=== PATIENT | female | born 1950 | race Caucasian/White ===

== ENCOUNTER 2018-07-01 10:47 | Inpatient (IN) | payer MEDICARE, OTHER, SELFPAY ==
[2018-05-13 08:46] VITALS: BMI 30.6
[2018-07-01] VITALS (27 sets, daily range): BP systolic 124–175; BP diastolic 46–88; PULSE 100–120; RESP 10–16; TEMP 36.1–36.6; O2SAT 90–97; BMI 32.1
--- NOTE | 2018-07-01 | DI.RAD.S_ITS ---
PROCEDURE: XR LUMBAR SPINE 2-3V INDICATIONS: L4-5 TLIF TECHNIQUE: 2 views of the lumbar spine were acquired. COMPARISON: [facility], MR, MR LUMBAR SPINE WITHOUT CONTRAST, 02/04/2018, 14:13. [facility], CR, L-SPINE 2-3 VIEWS, 11/17/2016, 11:26. FINDINGS: 2 spot fluoroscopic intraoperative images demonstrating posterior spinal instrumentation from L4-L5 interbody cage graft. There is expected intraoperative alignment. The hardware appears intact. Dictated by: Reg Ramirez M.D. on 07/01/2018 at 15:45 Approved by: Reg Ramirez M.D. on 07/01/2018 at 15:46
[2018-07-01] MEDS: LACTATED RINGERS 1,000 ML 42 ML IV (11:26)
--- NOTE | 2018-07-01 12:02 | PM.PREOP ---
Pre-operative Note Interval Note History & Physical reviewed/Exam performed by Physician: Yes Changes to H&P: No
[2018-07-01] MEDS: CEFAZOLIN 2 GM/100 ML FROZ.PIGGY IV (12:27)
--- NOTE | 2018-07-01 13:15 | SUR.OPER ---
Prone on spine table, head in foam head support, padded chest and pelvic supports, gel pad at knees, lower legs supported by pillows; nipples, genitalia and toes free of pressure, arms secured on foam padded arm boards at <90 degrees abduction. Tape over blanket at thigh secured to table. Gel pad between heels.
[2018-07-01] MEDS: BUPIVACAINE LIPOSOME 266 MG/20 ML VIAL INJ (13:26)
[2018-07-01] MEDS: BUPIVACAINE 0.25% W/ EPI VIAL 30 ML INJ (13:26)
--- NOTE | 2018-07-01 15:07 | P.OP_ITS ---
Operative Date/Time/Diagnoses Date of procedure: 07/01/18 Time of procedure: 12:01 Pre-op diagnosis: 1. L4-5 spondylolisthesis 2. L4-5 spinal stenosis Post-op diagnosis: same Procedure & Clinicians Procedure: 1. L4-5 Postero-lateral and posterior interbody fusion 2. L4-5 interbody cage placement. 3. L4-5 decompressive laminectomy with bilateral facetecomies 4. L4-5 Posterior non-segmental instrumentation 5. L3-4 hemilaminectomy 6. [place] of bone marrow from iliac crest 7. Utilization of microsurgical technique and operating microscope Same procedure as scheduled: Yes Indications: Patient has been having chronic back pain and worsening lumbar radiculopathy. Patient failed multiple conservative management with worsening pain weakness and numbness in her lower extremity. Patient has been having difficulty performing activity of daily living. After discussing risks benefits of treatment options, patient elected proceed with surgery. Surgeon: Carol Jin Roads Superintendent: Marcela Kolb Click Yes if Unassisted: No Anesthesia Type: General Operative Notes Closure Type: primary Specimen(s): none sent Prosthetic devices, grafts, tissues, transplants, or devices: Globus revolve screws, Rise cage Estimated Blood Loss (mL): 50 Blood products transfused: none Procedure in detail: Patient was seen in the preoperative area. Risks and benefits of the surgery was discussed with the patient. Informed consent was obtained from the patient and placed in the chart. Surgical site was marked. Patient was taken to the operative room. General anesthesia was administered. Prophylactic antibiotic was given to the patient less than 30 min before the incision was made. Patient was placed into a prone position on the Watson table. Patient's back was then prepped and draped in the sterile fashion. Time- out was performed at this time. Using AP and lateral C-arm imaging the interval between L3-L5 was identified and marked on patient's back. A 2 inch incision 2 in from midline was made on the left side first. The fascia was incised in line with skin incision. Globus MARS retractors was placed inside the incision and docked onto the L4 lamina. Using microsurgical technique and operating microscope, a L4 laminectomy and L4-5 facetectomy was performed using a Kerrison rongeur. More than 50% of bilateral L4-5 facets were removed during the process of decompression rendering the L4-5 level grossly unstable and requiring a fusion at the same time. The disc space at L4-5 was identified. And a total diskectomy was performed at L4-5 level. The endplates were decorticated using a rasp and shaver. The total diskectomy and decortication was performed at L4-5 level in order to to accomplish a L4-5 fusion. The local bone from the laminectomy and facetectomy was saved for local bone grafting. After the total diskectomy and decortication was completed, Shiela Bio4 bone graft material was combined with local bone that was harvested earlier. At this time, a separate skin is incision was made over the iliac crest. A Jamshidi needle was inserted into the iliac crest through a separate skin incision. 5 cc of bone marrow aspiration was obtained through the separate skin incision using a Jamshidi needle from the iliac crest. The bone marrow aspiration was combined with local bone and the Bio4 bone grafting material. The bone grafting material was placed into the L4-5 interbody space along with a expandable cage. The cage was expanded to its maximum height using the torque limiting screwdriver. At this time the MARS retractor was redirected over the L3 lamina. Using microsurgical technique and operating microscope, a L3-4 heminectomy was performed using the Kerrison rongeur. The ligamentum flavum was also resected at the side of the hemilaminectomy for further decompression of the epidural space. At this time a mirror image incision was made on the right side. The fascia was incised in line with the skin incision. Globus MARS retractor was inserted and docked onto the L4-5 posterolateral gutter. Using the power drill, posterior- lateral decortication was performed at L4-5 level until bleeding cortical bone was identified. The remaining bone grafting material was placed into the L4-5 posterior lateral gutter he order to accomplish posterolateral fusion at the L4- 5 level. Using the double C-arm technique, pedicle screws were placed into the L4 and L5 pedicles bilaterally. This was done by placing the Jamshidi needle into the pedicles, then placing the guidewires over the Jamshidi needle, and finally placing the cannulated screws over the guidewires bilaterally. After the pedicle screws were placed, 2 titanium rods was locked into the heads of the pedicle screws using locking caps and torque limiting screwdriver. After all the hardware was placed, and confirmed with AP and lateral C-arm imaging, the wound was then irrigated with sterile normal saline and packed with Ray-Gardenia gauze for 3 min to accomplish hemostasis. After the gauze was removed the deep fascia was closed with #1 Vicryl suture. The subcutaneous layer was closed with 2-0 Vicryl. The skin was closed with skin jess. Patient tolerated the procedure well. There were no complications. Complications: none Condition: stable Disposition: Acute Care Plan for aftercare: Admit to inpatient hospital
--- NOTE | 2018-07-01 15:44 | SUR.PHASEI ---
very slow to wake up but clinically stable. Did get Dilaudid late in the case.
[2018-07-01] MEDS: fentaNYL 100 MCG/2 ML INJ 50 MCG IV ×2 (16:19→16:40)
[2018-07-01] MEDS: LACTATED RINGERS 500 ML 1000 ML IV ×3 (16:47→18:24)
--- NOTE | 2018-07-01 16:53 | SUR.PHASEI ---
Dr Ramírez stopped at bedside to review and talk to the patient regarding HR. Discussed was use of beta jurgen and/or fluids. IV bolus of LR has been started.
--- NOTE | 2018-07-01 19:08 | PC.NURSE ---
Addendum entered by Radha Torrez R.N. 07/01/18 19:14: No IVF order received as a post op. Called surgical physician director content marketing for IVF clarification/order. Made aware that Dr. Ramírez order a LR fluid bolus and patients increased HR. Per Dr. Guerra, no maintenance IVF order required if patient is tolerating PO intake and voiding. No further order obtained. Encouraging fluids. Voiding. Will continue to monitor I/Os Original Note: Abby shift note: 1730 Patient admitted to room 224 s/p TLIF by Dr. Jin. Patient awake, alert, and pleasant. Up out of bed to void in bedside commode. Remain on O2 at 2L via NC, sats 94%. Dressing to lower back, CDI. 4+ strength to BLE, CMS intact. Oriented to room, environment, and plan of care. Call light within reach.
[2018-07-01] MEDS: DOCUSATE 100 MG CAPSULE PO (21:03)
[2018-07-01] MEDS: FENOFIBRATE 145 MG TABLET PO (21:03)
[2018-07-01] MEDS: PANTOPRAZOLE 20 MG TABLET PO (21:03)
[2018-07-01] MEDS: FLUTICASONE 44 MCG HFA 120 PUFF INH INH (21:03)
[2018-07-01] MEDS: SENNOSIDES 8.6 MG TABLET 17.2 MG PO (21:04)
[2018-07-01] MEDS: TRAZODONE 50 MG TABLET PO (21:04)
[2018-07-01] MEDS: PRAVASTATIN 20 MG TABLET PO (21:04)
[2018-07-01] MEDS: SPIRONOLACTONE 50 MG TABLET 100 MG PO (21:04)
[2018-07-01] MEDS: OXYCODONE IR 5 MG TABLET 10 MG PO (21:05)
[2018-07-01] MEDS: hydrOXYzine pamoate 25 MG CAPSULE PO (21:07)
[2018-07-02] MEDS: OXYCODONE IR 5 MG TABLET 10 MG PO ×5 (00:05→12:53)
[2018-07-02 00:21] VITALS: BP 128/68; PULSE 100; RESP 18; TEMP 36.4; O2SAT 97
[2018-07-02] MEDS: hydrOXYzine pamoate 25 MG CAPSULE PO ×2 (03:24→09:49)
[2018-07-02 03:37] VITALS: BP 120/66; PULSE 95; RESP 18; TEMP 36.4; O2SAT 97
--- NOTE | 2018-07-02 04:33 | PC.NURSE ---
Addendum entered by Yanci Waller R.N. 07/02/18 04:34: pain 10, pt planning to discharge today Original Note: NOC Note: pt has been up and amb in the [facility]arra, requesting prn meds very 3hrs as ordered and pain level is now at a 3/*10
[2018-07-02 05:49] LABS: Hematocrit 29.6 % (36-46); Hemoglobin 9.2 g/dL (12.0-16.0)
[2018-07-02] MEDS: PANTOPRAZOLE 20 MG TABLET PO (06:43)
[2018-07-02 08:00] VITALS: BP 128/66; PULSE 108; RESP 18; TEMP 36.6; O2SAT 95
[2018-07-02] MEDS: METFORMIN HCL 500 MG TABLET 1000 MG PO (08:50)
[2018-07-02] MEDS: CALCIUM CARB/VIT D3 500/200 TABLET 1 EACH PO (08:50)
[2018-07-02] MEDS: hydroCHLOROthiazide 25 MG TABLET PO (08:51)
[2018-07-02] MEDS: OXYBUTYNIN 5 MG TABLET PO (08:51)
[2018-07-02] MEDS: DOCUSATE 100 MG CAPSULE PO (08:51)
[2018-07-02] MEDS: PRAVASTATIN 20 MG TABLET PO (08:51)
[2018-07-02] MEDS: VENLAFAXINE 37.5 MG TABLET PO (08:52)
[2018-07-02] MEDS: SPIRONOLACTONE 50 MG TABLET 100 MG PO (08:52)
--- NOTE | 2018-07-02 09:04 | PM.DS.1 ---
History of Present Illness Date Patient Seen: 07/02/18 Time Patient Seen: 09:04 Chief complaint: [id number] Narrative: Hospital day 2, postop day 1 following L3-4 hemilaminectomy, L4-5 TLIF, posterior instrumentation by Dr. Jin. Patient states she did get some rest off and on. She has been ambulating around the room with walker. No PT yet. Pain controlled with oxycodone 10 mg and Vistaril 25 mg. Patient feels that she is able to go home today. She does have her and friend take care of her. Discharge Providers Date of admission: 07/01/18 10:47 Primary care physician: Sun Cox PA-C Consults: 05/13/18 09:37 Consult to Pastoral Services Routine Comment: TLIF 05/29 Consult to Respiratory Therapy Evaluate & Treat Comment: Physician Instructions: Evaluate and treat 07/01/18 17:39 Consult to Occupational Therapy Evaluate & Treat Comment: Physician Instructions: Evaluate and treat Consult to Physical Therapy Evaluate & Treat Comment: Physician Instructions: Evaluate and Treat Discharge provider: Aleksey Sellers PA-C Discharge Date: 07/02/18 Summary Discharge Diagnosis: Status post L3-4 hemilaminectomy, L4-5 TLIF with posterior instrumentation Hospital Course: Patient brought to hospital on 07/01/2018 for above-noted surgery. She remained stable postoperatively. Ambulating well postoperatively. Patient ready for discharge home on postop day 1. Status at Discharge Cognitive/behavioral status at discharge: Alert, oriented no acute distress. Functional status at discharge: uses cane/walker Overall status at discharge: patient is progressing back to baseline Time Spent with Patient Less than 30 minutes Exam Vital Signs (past 8 hours): - 07/02/18 03:37 07/02/18 08:00 Temperature 97.6 F 98 F Pulse Rate 95 H 108 H Respiratory Rate 18 18 Blood Pressure 120/66 128/66 Pulse Oximetry 97 95 Oxygen Delivery Method Nasal Cannula Oxygen Flow Rate 0 Narrative Exam Narrative: Back. Dressing is dry without drainage or inflammation. Legs no calf pain or swelling. Pulses symmetrical. Good sensation to touch the lower legs. Good strength on foot dorsiflexion plantar flexion. Objective Labs Result Diagrams: 07/02/18 05:24 Labs: Laboratory Results - last 24 hr 07/02/18 05:24 Hgb 9.2 L Hct 29.6 L Discharge Plan Discharge Plan Patient Disposition: Home Discharge comment: Discharged home today after cleared by PT. Given prescriptions for oxycodone and Vistaril. Patient to avoid excessive bending or twisting of lumbar spine. No lifting or carrying more than 5-10 lb. Discharge Med Rec/Prescriptions Prescriptions: New docusate sodium 100 mg Capsule 100 mg PO BID Qty: 30 RF: 0 oxycodone 5 mg Tablet 10 mg PO Q3HR PRN (Reason: Pain, Moderate (4-6)) Qty: 40 RF: 0 hydroxyzine pamoate 25 mg Capsule 25 mg PO Q6HR PRN (Reason: Nausea) Qty: 30 RF: 0 Continued calcium carbonate-vitamin D3 [Calcium 600 with Vitamin D3] 600 MG/200 IU capsule 1 units PO QDAY Qty: 0 RF: 0 metformin 1,000 MG tablet 1,000 mg PO BIDCC Qty: 0 RF: 0 tramadol 50 mg Tablet 1 - 2 tab PO BEDTIME Qty: 0 RF: 0 trazodone 50 mg Tablet 50 mg PO BEDTIME RF: 0 cetirizine [Zyrtec] 10 mg Tablet 10 mg PO DAILY RF: 0 spironolactone 100 mg Tablet 100 mg PO BID RF: 0 venlafaxine 37.5 mg Tablet 37.5 mg PO DAILY RF: 0 fluticasone 44 mcg/actuation Hfa Aerosol Inhaler 2 inh INHALATION QD-BID RF: 0 omeprazole 20 mg Capsule,Delayed Release(Dr/Ec) 20 mg PO BID RF: 0 pravastatin 20 mg Tablet 20 mg PO BID RF: 0 hydrochlorothiazide 25 mg Tablet 25 mg PO DAILY RF: 0 oxybutynin chloride 5 mg Tablet 5 mg PO QAM RF: 0 fenofibrate nanocrystallized 145 mg Tablet 145 mg PO BEDTIME RF: 0 Follow up/Referrals: Sun Cox PA-C [Primary Care Provider] - Provider Discharge Instructions Diet: Diet as Tolerated Activity: Ambulate as tolerated with walker. No sitting more than 1 hr to time. No lifting or carrying more than 5-10 lb. Avoid excessive bending or twisting of lumbar spine. Cold/Heat Therapy: Cold pack to lumbar incision area as needed. Skin/Wound/Dressing Care Report to your healthcare provider any signs of infection, such as:: chills, fever, night sweats, increased pain, unusual drainage and unusual redness Dressing: CovRsite dressing to the lumbar incision. Keep dressing clean and dry. May shower without direct spray on the dressing. Visit Report/Discharge Packet Instructions: DI for Transforaminal Lumbar Interbody Fusion Discharge Data Primary Care Provider: Sun Cox I Attending Provider: Carol Jin Admit Date/Time: 07/01/18 10:47
--- NOTE | 2018-07-02 09:08 | P.DS_ITS ---
History of Present Illness Date Patient Seen: 07/02/18 Time Patient Seen: 09:04 Chief complaint: [id number] [phone] [phone] Narrative: Hospital day 2, postop day 1 following L3-4 hemilaminectomy, L4-5 TLIF, posterior instrumentation by Dr. Jin. Patient states she did get some rest off and on. She has been ambulating around the room with walker. No PT yet. Pain controlled with oxycodone 10 mg and Vistaril 25 mg. Patient feels that she is able to go home today. She does have her and friend take care of her. Discharge Providers Date of admission: 07/01/18 10:47 Primary care physician: Sun Cox PA-C Consults: 05/13/18 09:37 Consult to Pastoral Services Routine Comment: TLIF 05/29 Consult to Respiratory Therapy Evaluate & Treat Comment: Physician Instructions: Evaluate and treat 07/01/18 17:39 Consult to Occupational Therapy Evaluate & Treat Comment: Physician Instructions: Evaluate and treat Consult to Physical Therapy Evaluate & Treat Comment: Physician Instructions: Evaluate and Treat Discharge provider: Aleksey Sellers PA-C Discharge Date: 07/02/18 Summary Discharge Diagnosis: Status post L3-4 hemilaminectomy, L4-5 TLIF with posterior instrumentation Hospital Course: Patient brought to hospital on 07/01/2018 for above-noted surgery. She remained stable postoperatively. Ambulating well postoperatively. Patient ready for discharge home on postop day 1. Status at Discharge Cognitive/behavioral status at discharge: Alert, oriented no acute distress. Functional status at discharge: uses cane/walker Overall status at discharge: patient is progressing back to baseline Time Spent with Patient Less than 30 minutes Exam Vital Signs (past 8 hours): - 07/02/18 03:37 07/02/18 08:00 Temperature 97.6 F 98 F Pulse Rate 95 H 108 H Respiratory Rate 18 18 Blood Pressure 120/66 128/66 Pulse Oximetry 97 95 Oxygen Delivery Method Nasal Cannula Oxygen Flow Rate 0 Narrative Exam Narrative: Back. Dressing is dry without drainage or inflammation. Legs no calf pain or swelling. Pulses symmetrical. Good sensation to touch the lower legs. Good strength on foot dorsiflexion plantar flexion. Objective Labs Result Diagrams: 07/02/18 05:24 Labs: Laboratory Results - last 24 hr 07/02/18 05:24 Hgb 9.2 L Hct 29.6 L Discharge Plan Discharge Plan Patient Disposition: Home Discharge comment: Discharged home today after cleared by PT. Given prescri ptions for oxycodone and Vistaril. Patient to avoid excessive bending or twisting of lumbar spine. No lifting or carrying more than 5-10 lb. Discharge Med Rec/Prescriptions Prescriptions: New docusate sodium 100 mg Capsule 100 mg PO BID Qty: 30 RF: 0 oxycodone 5 mg Tablet 10 mg PO Q3HR PRN (Reason: Pain, Moderate (4-6)) Qty: 40 RF: 0 hydroxyzine pamoate 25 mg Capsule 25 mg PO Q6HR PRN (Reason: Nausea) Qty: 30 RF: 0 Continued calcium carbonate-vitamin D3 [Calcium 600 with Vitamin D3] 600 MG/200 IU cap brittany 1 units PO QDAY Qty: 0 RF: 0 metformin 1,000 MG tablet 1,000 mg PO BIDCC Qty: 0 RF: 0 tramadol 50 mg Tablet 1 - 2 tab PO BEDTIME Qty: 0 RF: 0 trazodone 50 mg Tablet 50 mg PO BEDTIME RF: 0 cetirizine [Zyrtec] 10 mg Tablet 10 mg PO DAILY RF: 0 spironolactone 100 mg Tablet 100 mg PO BID RF: 0 venlafaxine 37.5 mg Tablet 37.5 mg PO DAILY RF: 0 fluticasone 44 mcg/actuation Hfa Aerosol Inhaler 2 inh INHALATION QD-BID RF: 0 omeprazole 20 mg Capsule,Delayed Release(Dr/Ec) 20 mg PO BID RF: 0 pravastatin 20 mg Tablet 20 mg PO BID RF: 0 hydrochlorothiazide 25 mg Tablet 25 mg PO DAILY RF: 0 oxybutynin chloride 5 mg Tablet 5 mg PO QAM RF: 0 fenofibrate nanocrystallized 145 mg Tablet 145 mg PO BEDTIME RF: 0 Follow up/Referrals: Sun Cox PA-C [Primary Care Provider] - Provider Discharge Instructions Diet: Diet as Tolerated Activity: Ambulate as tolerated with walker. No sitting more than 1 hr to time. No lifting or carrying more than 5-10 lb. Avoid excessive bending or twisting of lumbar spine. Cold/Heat Therapy: Cold pack to lumbar incision area as needed. Skin/Wound/Dressing Care Report to your healthcare provider any signs of infection, such as:: chills, fever, night sweats, increased pain, unusual drainage and unusual redness Dressing: CovRsite dressing to the lumbar incision. Keep dressing clean and dry. May shower without direct spray on the dressing. Visit Report/Discharge Packet Instructions: DI for Transforaminal Lumbar Interbody Fusion Discharge Data Primary Care Provider: Sun Cox I Attending Provider: Carol Jin Admit Date/Time: 07/01/18 10:47
--- NOTE | 2018-07-02 09:42 | PC.NURSE ---
Addendum entered by Gayatri Richardson R.N. 07/02/18 13:57: Pt left unit at 1357 in no distress with all belongings. Pt left via wheelchair with 2 RESIDENT CARE SPEC's. Pt's daughter waiting at ED entrance to drive pt home. Original Note: Addendum entered by Gayatri Richardson R.N. 07/02/18 13:16: Lower back dressing changed to one coversite dressing. Pt tolerated well. Old dressing removed, jess intact to both incisions, no active draining. Area cleansed with NS by candy bar attendant with this RN's supervision. And coversite placed. candy bar attendant reviewed Discharge summary ,prescription, F/U appointment with this Rn's supervision. Pt had no voiced concerns. Awaiting pt's ride for discharge. Original Note: Addendum entered by Gayatri Richardson R.N. 07/02/18 11:41: Pt's pain controlled with prn Oxycodone and vistaril. Rates 1-4/10 pain to lower back and intermittent buring to left lower back with ambulation. Ambulating in halls with SBA using walker. PT okay to go home. Pt's daughter will product picker pt around 1400. Original Note: Day Shift- Spoke with DANNI Eaton at 0940, made aware of pt's tachycardia. HR mid 90's to low 100's. Monitor at home and call PCP if any further symptoms. Pt does have mild anxiety this AM. Plan for discharge around 1400.
--- NOTE | 2018-07-02 10:01 | PT.IIE ---
Current Diagnoses Spondylolisthesis, lumbar region (07/01/18) Other spondylosis with radiculopathy, lumbar region (07/01/18) Spinal stenosis, lumbar region without neurogenic claudication (07/01/18) Surgery Performed Operation Date: 07/01/18 12:45 Actual Procedures p L3-4 Right hemilaminectomy, L4-5 TLIF w/Posterior Instru. - Carol Jin MD Surgical History (Last Updated 05/13/18 @ 09:01 by Siobhan Solitario RN) History of bilateral tubal ligation (Acute) History of decompression of both ulnar nerves (Acute) Hx of appendectomy (Acute) Hx of arthroscopy of right knee (Acute) Hx of bladder repair surgery (Acute) Hx of laparoscopy (Acute) Hx of microdiscectomy (Acute) Hx of microdiscectomy (Acute 11/17/16) Hx of rhinoplasty (Acute) Hx of toe surgery (Acute) Hx of tonsillectomy (Acute) S/P cervical spinal fusion (Acute 06/26/16) S/P tendon repair (Acute) Medical History (Last Updated 06/05/18 @ 12:28 by Siobhan Solitario RN) Anxiety about health (Acute) Asthma (Acute) COPD (chronic obstructive pulmonary disease) (Acute) Diabetes (Acute) GERD (gastroesophageal reflux disease) (Acute) Ganglion cyst of dorsum of right wrist (Acute) H/O: hysterectomy (Acute) HTN (hypertension) (Acute) Hyperlipidemia (Acute) Hypothyroid (Acute) Keratosis (Acute) Numbness and tingling (Acute) Panic attacks (Acute) Pulmonary nodules (Acute) Sleep apnea (Acute) Vertigo (Acute) Physical Therapy Inpatient Evaluation/Re-Eval M1 PT/OT-IP Prior Functional Status Start: 07/02/18 08:40 Freq: NEEDED Status: Active Protocol: Document 07/02/18 09:38 EA (Rec: 07/02/18 09:48 EA [id number]) Medical Review Prior Functional Status Medical History Reviewed Yes Diet/Fluid Consistency Regular Communication A&O x 3 Mobility and Gait Ambulates > 2 blocks with straight cane to right hand Activities of Daily Living and IADL's Independent in ADL's Prior Functional Level (Other details) Fall 2 x more than 9 months ago. Social History Household Members spouse Living Arrangements House Number of Stairs To Enter/Railing? 2 steps to get in with rails to right side Home Equipment Front Wheel Walker Straight Cane Bedside Commode Grab Bars Near Toilet Employment Status Retired M2 PT-IP Current Condition Start: 07/02/18 08:40 Freq: NEEDED Status: Active Protocol: Document 07/02/18 09:38 EA (Rec: 07/02/18 09:48 EA [id number]) Physical Therapy Current Condition Current Condition Evaluation Date 07/02/18 Treatment Diagnosis L3-L4 LAMI, L4-L5 TLIF Onset Date 07/02/2018 Precautions Lumbar Precautions Log Roll No Twisting Limit Bending Lifting Restriction of 10 lbs Weight Bearing Status Weight Bearing Status Weight Bear as Tolerated M3 PT-IP Subjective Start: 07/02/18 08:40 Freq: NEEDED Status: Active Protocol: Document 07/02/18 09:38 EA (Rec: 07/02/18 09:48 EA [id number]) Subjective Physical Therapy Visit Type Type Initial Evaluation Visit Start Time 09:00 Visit Stop Time 09:45 Total Visit Minutes 45 Physical Therapy Visit Comments Patient Comments Patient would like to ambulate and try stairs before discharge today. Patient Goals Be able to ambulate and navigate stairs with FWW and STC prior to discharge. Therapy Pain Assessment Pain When Pain Assessed At Rest Pain Present Pain Present Pain Reported Location Back Intensity 2 Scale Used Numeric (1 - 10) Description Acute Burning M4 PT-IP Mobility and Gait Start: 07/02/18 08:40 Freq: NEEDED Status: Active Protocol: Document 07/02/18 09:38 EA (Rec: 07/02/18 09:48 EA [id number]) PT-Bed Mobility Assessment Rolling Type of Rolling Log Rolling Roll to Left Level of Assist Standby Assistance Supine to Sit Supine to Sit Standby Assistance Sit to Supine Sit to Supine Standby Assistance Scooting Scooting to Edge of Bed Standby Assistance PT-Transfer Assessment Sit to and From Stand Sit to and from Stand Standby Assistance Equipment Transfer Assistive Device Gait Belt Front Wheeled Walker Transfers Transfer Technique stepping transfers Transfer Ability Level of Assist Standby Assistance Comments Mobility Comments Patient would like get in/out of the bed on right side of the bed due to vertigo issues. Gait Assessment Gait Gait Assistance Required: Standby Assistance Able to Maintain Weight Bearing Status Yes During Gait Assistive Devices Assistive Device Front Wheeled Walker Gait Deviations General Gait Pattern Within Normal Limits Factors Limiting Gait Function Factors Limiting Gait Function Decreased Activity Tolerance Decreased Strength Pain Stair Climbing Assessment Evaluation Level of Assist On Stairs Standby Assistance Devices Stair Climbing Assistive Devices Straight Cane Technique/Endurance Stair Climbing Direction Ascend and Descend Stair Climbing Technique Step Over Step Step to Step Number of Steps Climbed 3 Query Text: Stair Climbing Set # Repetitions (reps) 1 Comments Stair Climbing Comments Step to step to ascend and step through to descend. Would like to perform climbing up with left to ascent on sideways as she got used to it and as per her doctor advise. PT-Balance Assessment Sitting Balance and Reactions Static Sitting Balance Ability Good Dynamic Sitting Balance Ability Good Standing Balance and Reactions Static Standing Balance Ability Good Dynamic Standing Balance Ability Fair M5 PT-IP Objective Assessments Start: 07/02/18 08:40 Freq: NEEDED Status: Active Protocol: Document 07/02/18 09:38 EA (Rec: 07/02/18 09:48 EA [id number]) Orientation Orientation/Cognition Level of Alertness Alert Orientation Name Age Language Function Ability No Deficits Noted Safety Awareness Understands Safety Issues Memory Description No Deficits Noted Gross Range of Motion Upper Extremity ROM Assessment Within Functional Limits Lower Extremity ROM Assessment Within Functional Limits Strength Upper Extremity Strength Assessment Within Functional Limits Lower Extremity Strength Assessment Within Functional Limits Ankle L ankle DF 4-/5 due to anterior bone spurs pain per patient Coordination Assessment Gross Coordination Gross Coordination WNL Assessment Finger to Nose Test Normal Performance Foot Tapping Test Normal Performance Sensation Assessment Sensation Gross Sensation WNL Light Touch Intact Proprioception (Position) Intact M6 PT-IP Treatment Start: 07/02/18 08:40 Freq: NEEDED Status: Active Protocol: Document 07/02/18 09:38 EA (Rec: 07/02/18 09:48 EA [id number]) Physical Therapy Treatment Education Education Provided Precautions Weight Bearing Status Post-Op Packet Safety M7 PT-IP Assessment and Plan Start: 07/02/18 08:40 Freq: NEEDED Status: Active Protocol: Document 07/02/18 09:38 EA (Rec: 07/02/18 09:48 EA [id number]) PT Summary Assessment and Plan Potential Rehabilitation Potential Excellent Status of Condition at Evaluation Stable Summary Impairments Pain ROM Strength Balance Bed Mobility Transfers Gait Activity Tolerance Progress Towards Goals Progressing Toward Goals Assessment Summary Patient exhibits near to SBA in all functional transfers and mobility including stairs navigation. Patient highly understands safe mobility and post surgery pre-cautions. She did not show any signs of instability or fatigue during transfers, amb, and stairs. Patient is safe to discharge to PT at this time. Patient is educated about mobility and lifting pre-cautions. Goals Bed Mobility Goal Standby Assistance Transfer Goal Standby Assistance Gait Goal Standby Assistance Frequency of Treatment Frequency Of Treatment Discharge Recommendations To Nursing Amount of Assist Needed Standby Assistance Discharge Recommendations PT Discharge Recommendations Home with Assistance
--- NOTE | 2018-07-02 14:23 | OT.IP.EVAL ---
Current Diagnoses Spondylolisthesis, lumbar region (07/01/18) Other spondylosis with radiculopathy, lumbar region (07/01/18) Spinal stenosis, lumbar region without neurogenic claudication (07/01/18) Surgery Performed Operation Date: 07/01/18 12:45 Actual Procedures p L3-4 Right hemilaminectomy, L4-5 TLIF w/Posterior Instru. - Carol Jin MD Past Medical History (Last Updated 06/05/18 @ 12:28 by Siobhan Solitario RN) Anxiety about health (Acute) Asthma (Acute) COPD (chronic obstructive pulmonary disease) (Acute) Diabetes (Acute) GERD (gastroesophageal reflux disease) (Acute) Ganglion cyst of dorsum of right wrist (Acute) H/O: hysterectomy (Acute) HTN (hypertension) (Acute) Hyperlipidemia (Acute) Hypothyroid (Acute) Keratosis (Acute) Numbness and tingling (Acute) Panic attacks (Acute) Pulmonary nodules (Acute) Sleep apnea (Acute) Vertigo (Acute) Surgical History (Last Updated 05/13/18 @ 09:01 by Siobhan Solitario RN) History of bilateral tubal ligation (Acute) History of decompression of both ulnar nerves (Acute) Hx of appendectomy (Acute) Hx of arthroscopy of right knee (Acute) Hx of bladder repair surgery (Acute) Hx of laparoscopy (Acute) Hx of microdiscectomy (Acute) Hx of microdiscectomy (Acute 11/17/16) Hx of rhinoplasty (Acute) Hx of toe surgery (Acute) Hx of tonsillectomy (Acute) S/P cervical spinal fusion (Acute 06/26/16) S/P tendon repair (Acute) Occupational Therapy Inpatient Evaluation/Re-Eval M1 PT/OT-IP Prior Functional Status Start: 07/02/18 14:12 Freq: NEEDED Status: Active Protocol: Document 07/02/18 11:50 [facility] (Rec: 07/02/18 14:23 [facility] [id number]) Medical Review Prior Functional Status Medical History Reviewed Yes Diet/Fluid Consistency Regular Communication A&O x 3 Mobility and Gait Ambulates > 2 blocks with straight cane to right hand Activities of Daily Living and IADL's Independent in ADL's Prior Functional Level (Other details) Fall 2 x more than 9 months ago. Social History Household Members spouse Living Arrangements House Number of Stairs To Enter/Railing? 2 steps to get in with rails to right side Home Equipment Front Wheel Walker Straight Cane Bedside Commode Grab Bars Near Toilet Employment Status Retired M2 OT-IP Current Condition Start: 07/02/18 14:12 Freq: Status: Active Protocol: Document 07/02/18 11:50 [facility] (Rec: 07/02/18 14:23 [facility] [id number]) Occupational Therapy Current Condition Current Condition Evaluation Date 07/02/18 Treatment Diagnosis Spinal Stenosis Diagnosis Onset Date 07/01/18 M3 OT- IP Subjective and Pain Start: 07/02/18 14:12 Freq: Status: Active Protocol: Document 07/02/18 11:50 [facility] (Rec: 07/02/18 14:23 [facility] [id number]) OT- Subjective Occupational Therapy Visit Type Type Initial Evaluation Visit Start Time 11:50 Visit Stop Time 12:10 Total Visit Minutes 20 Occupational Therapy Visit Comments Patient Comments Pt ready to go home and willing to do OT eval. OT Pain Assessment Pain When Pain Assessed At Rest Pain Present Pain Present Denied Pain M4 OT- IP ADL's Start: 07/02/18 14:12 Freq: Status: Active Protocol: Document 07/02/18 11:50 [facility] (Rec: 07/02/18 14:23 [facility] [id number]) OT ADL-Dressing General Eval Lower Body Dressing Ability Maximum Assistance Comments OT Dressing Comments Educated pt on LB AED of sock aid, pt already has boat rigger at home to use. Pt able to freddy/ doff socks with increased time after education. OT ADL-Toileting Comments OT Toileting Comments Pt states since she uses the bathroom a lot at night that she will pickling tank operator a BSC. In addition suggested pt may want to wear pads at night. Pt also given information for toilet aid. M6 OT- IP Functional Cognition Start: 07/02/18 14:12 Freq: Status: Active Protocol: Document 07/02/18 11:50 [facility] (Rec: 07/02/18 14:23 [facility] [id number]) Cognitive Factors Limiting Selfcare Function Cognitive Ability Level of Alertness Alert Patient Orientation Name Place Situation Attention Span Ability Capable of Focused Attention Capable of Sustained Attention Ability to Follow Commands Able to Follow Multi-Step Commands Memory Description No Deficits Noted Safety Awareness No Deficits Noted Problem Solving Ability No deficits Noted Cognitive Comments Cognitive Assessment Comments Intact and able to recall all back precautions. M9 OT- IP Assessment and Plan Start: 07/02/18 14:12 Freq: Status: Active Protocol: Document 07/02/18 11:50 [facility] (Rec: 07/02/18 14:23 [facility] [id number]) OT Summary Assessment and Plan Potential Rehabilitation Potential Good Analytic Complexity at Evaluation Low Summary OT Impairments Functional Mobility Dressing Toileting Bathing Progress Towards Goals Progressing Toward Goals Assessment Summary Pt low complexity and doing well at this time for mobility with FWW and PT has already cleared pt for going home. Pt' s family to be able to assist pt for OT needs at needs. Therefore pt going home with assist from family. Goals Patient/Caregiver Education Goal Demonstrate Post-Op Precautions Caregiver Independent Assisting Patient Days to Meet Goals 1 Frequency of Treatment Frequency Of Treatment Once a Day Treatment Plan OT Treatment Plan ADL Training Discharge Recommendations OT Discharge Recommendations Home with Assistance Home Equipment Needs shower chair, BSC, sock aid, toilet aid
--- NOTE | 2018-07-02 15:01 | CM.DANOTE ---
DCP/Assessment: Reviewed chart. Patient is a 68yr old female admitted [facility] for spine surgery performed on 07-01-[address] Jin. PCP listed is: Sun Cox. Primary payor is 1)Medicare 2)[email or web address]. Met with patient explained CM/SW role. Patient reports that she plans to go home today. Patient has needed DME and feels like she will be fine to d/c home today. Therapy evaluating this AM. If cleared, plan is for patient do d/c home. Patient denies any d/c planning needs. P: Home when medically stable. CARIN Denny Discharge Planning/Care Management CM Discharge Assessment Start: 07/02/18 14:59 Freq: Status: Discharge Protocol: Document 07/02/18 14:59 [facility] (Rec: 07/02/18 15:01 KJS [id number]) Discharge Planning Assessment Assigned Master Police Detective CARIN Denny Contact Information Ahmet Burr # Advance Directives? No: Declines further information History Provided By Patient Has Patient been admitted in last 30 No days? Prior Living Arrangements House Household Members spouse Type of transporation used prior to Drives own vehicle admit Independent with ADL's Yes Is patient alert and oriented? Yes Caregiver for Another No DME Already Rented / Owned FWW / Walker Barriers to Discharge No Discharge Plan Home Referrals Initiated None needed Whiteboard Updated in Patient Room with Yes name and ext. # of Master Police Detective Review Status In Process Please Provide Date Initial DC 07/02/18 Assessment Was Performed Next Review Type Continued Stay Review Pre-Anesthesia Assessment Start: 05/13/18 08:46 Freq: Status: Complete Protocol: Document 05/13/18 08:46 [facility] (Rec: 05/13/18 09:36 [facility] [id number]) Pre-Anesthesia Assessment Patient Information Reviewed Via Phone Assessment Assessment Completed With Patient Diagnostic Results BMP/CMP CBC EKG Other Comment Outside labs/EKG to med records to be scanned to chart Primary Care Provider Wilfredo Mccoy Medical Clearance Received Yes Seen Specialist in Last 12 Months Yes Specialist Seen Orthopedist Medical Aides Teacher School Custodian Sleep specialist Comment Sleep visit/pre-op 06/03/18 scanned to record Primary Language Chinese Crane Service Technician Required No Height 163.83 cm Weight 82.1 kg Body Mass Index (BMI) 30.6 Hearing Ability Normal Visual Assist Glasses Dentition Type Teeth, Natural Present Teeth, Missing Partial- Lower Barriers to Learning None Hx Anesthesia Reactions Yes: Nausea/vomiting post-op Hx Family Anesthesia Reaction No Hx Malignant Hyperthermia No Hx Blood Transfusions Yes: 45 years r/t vaginal delivery Hx Blood Transfusion Reaction No Anesthesia Review Requested No Functional Manager No alcohol intake current alcohol intake frequency holidays/special occasions only Smoking Status Former smoker Smoking packs per day 2 how long ago did patient quit smoking Quit approx 30 years, smoked 15 years on and off Smoking pack-years 30 Substance Use Type does not use Pain Present Pain Reported Musculoskeletal Symptoms Abnormal Gait Back Pain Difficulty Walking Joint Pain Joint Stiffness Muscle Cramps Numbness Tingling History of Falling (Recent or History of Yes ) Patient is completely paralyzed or No completely immobile Prosthesis or Orthotic Device Cane Mental Status Oriented to own ability Is patient on oxygen? No Does patient have ROD/SOB No Hx Sleep Apnea Yes: Borderline per pt, no equipment CPAP/BIPAP use not prescribed Currently Taking a Beta Josse No Can You Climb a Flight of Stairs Without Yes: one step at time SOB Hx Chest Pain No Hx SOB No Hx Syncope or Dizziness Yes: r/t Vertigo Anti-Coagulant Therapy No Has a Leadership Development Consultant No Cardiac Testing No Hx Pacemaker/ICD No Pacemaker Rep Required? No Diet Type At Home Regular dysphagia No Bladder Pattern Urgency Urinary Catheter Present No Hx Urinary Self Catheterization No Diabetes Yes: Pt does not check blood sugars, I feel fine HgbA1C 7.8 Date 04/24/18 Comment Encouraged pt to talk w/PCP on checking blood sugars at home Patient No Lactating No Hx Drug Resistant Organism No Presence of External or Internal Medical No Devices Have you traveled outside the [facility] in the last 30 days? Marital Status Lives With spouse Prior Living Arrangements House Number of Floors (Floors) One Floor Number of Stairs To Enter/Railing? 2 stairs, railing present Support System Child/Children Spouse Does the Patient Have Assistance After Yes Surgery Patient Discharge Plan Description Return Home Comment Pt advised 2 night length of stay per surgeon's office Feels Safe in Current Environment Yes Been Physically Hurt or Threatened By a No Person in Current Environment Do you have thoughts of harming yourself None or others? Are you currently considering suicide? No Do you have a plan to hurt yourself or No Plan others? Do You Have Any Spiritual Beliefs That No May Affect Your HC Choices? Do You Have Any Cultural Practices That No May Affect Your HC Choices? Spiritual Referral In-House Nickel Plater Comment Tenriism Who Can We Speak to About Patient's Care Family only Identifying Code for Release of Patient Declines to issue Information Health Care Proxy/Next of Kin Ahmet () or Zoila (daughter) Health Care Proxy Phone Number Ahmet: [phone], Zoila: [phone] Emergency Contact Name Ahmet () or Zoila (daughter) Emergency Contact Phone Number Ahmet: [phone], Zoila: [phone] Advance Directives? No: Declines further information Power of Dry End Operator No PAC Instructions Durable medical equipment Medications to take/avoid Nasal antibiotic No ETOH/petroleum product on skin DOS NPO Pre-surgical wash Sturdy shoes/comfortable clothes Do not bring valuables and remove jewelry
== END 2018-07-02 13:58 | disposition home or self-care (01) | DRG 455 ==
PROVIDERS: Admitting Provider Orthopaedic Surgery Orthopaedic Surgery of the Spine; Family Provider Physician Assistant; PCP Physician Assistant; Visit Provider Orthopaedic Surgery Orthopaedic Surgery of the Spine
PROC: 0SG00AJ Fusion of Lumbar Vertebral Joint with Interbody Fusion Device, Posterior Approach, Anterior Column, Open Approach (ICD-10-PCS; principal; 2018-07-01 12:45)
DX: M48.061 Spinal stenosis, lumbar region without neurogenic claudication (principal); M43.16 Spondylolisthesis, lumbar region; I10 Essential (primary) hypertension; E11.9 Type 2 diabetes mellitus without complications; K21.9 Gastro-esophageal reflux disease without esophagitis; E78.5 Hyperlipidemia, unspecified; F41.9 Anxiety disorder, unspecified; Z87.891 Personal history of nicotine dependence; Z79.84 Long term (current) use of oral hypoglycemic drugs
CPT/HCPCS: 36415; 72100; 76000; 85014; 85018; 97161; 97165; 97530; 97535; C1776; C9290; J0330; J0690; J1100; J1170; J2250; J2405; J2704; J3010

== ENCOUNTER → 2020-07-10 11:08 | Outpatient (CLI) | payer MEDICARE, OTHER, SELFPAY ==
[2018-07-01 18:33] VITALS: BMI 32.1
[2020-07-10 14:37] LABS: COVID19 -Nasal RAPID Negative (Negative)
== END ==
PROVIDERS: Family Provider Physician Assistant; PCP Physician Assistant; Visit Provider Nurse Practitioner
DX: Z20.822 Contact with and (suspected) exposure to COVID-19 (principal)
CPT/HCPCS: 87635; C9803

== ENCOUNTER 2020-07-13 14:12 | Inpatient (IN) | payer MEDICARE, OTHER, SELFPAY ==
[2018-07-01 18:33] VITALS: BMI 32.1
[2020-06-29 11:34] VITALS: BMI 34.1
[2020-07-12] VITALS (17 sets, daily range): BP systolic 81–168; BP diastolic 55–84; PULSE 92–105; RESP 10–93; TEMP 35.8–37.4; O2SAT 16–97; BMI 34.1
--- NOTE | 2020-07-12 06:00 | DI.RAD.S_ITS ---
PROCEDURE: XR KNEE RT 1TO2V INDICATIONS: post-op films TECHNIQUE: 2 view(s) of the knee acquired. COMPARISON: None. FINDINGS: Bones: Patient is status post knee joint arthroplasty. Hardware components are in expected positions. Visualized bony structures are intact. Soft tissues: Overlying postoperative changes are noted. IMPRESSION: Postop changes from right total knee arthroplasty with anatomic right knee alignment. Dictated by: Jaylen Siu M.D. on 07/12/2020 at 11:04 Approved by: Jaylen Siu M.D. on 07/12/2020 at 11:05
[2020-07-12] MEDS: PREGABALIN 75 MG CAPSULE PO (06:44)
[2020-07-12] MEDS: ACETAMINOPHEN 325 MG TABLET 975 MG PO (06:44)
[2020-07-12] MEDS: LACTATED RINGERS 1,000 ML 42 ML IV ×2 (07:05→09:25)
--- NOTE | 2020-07-12 07:05 | PM.PREOP ---
Pre-operative Note COVID-19 COVID-19 status: Negative Result date/Date tested (Pos, Neg/Pending): 07/10/20 Interval Note History & Physical reviewed/Exam performed by Physician: Yes Changes to H&P: No
[2020-07-12] MEDS: CEFAZOLIN 2 GM/100 ML FROZ.PIGGY IV (08:17)
[2020-07-12] MEDS: TRANEXAMIC ACID 1,000 MG VIAL 1000 MG INJ ×2 (08:30→09:23)
[2020-07-12] MEDS: FAMOTIDINE 20 MG/50 ML PIGGYBACK 200 MG IV (08:31)
--- NOTE | 2020-07-12 08:38 | SUR.OPER ---
Supine on padded OR bed. Pillow under head, arms secured on padded armboards <90 degree abduction. Safety belt across torso. Non-operative leg secured with tape over blanket over lower leg. Operative leg secured in DeMayo/Kb positioner. Foam padded brace at thigh of operative leg.
[2020-07-12] MEDS: BUPIVACAINE 0.5% W/ EPI (PF) 30 ML VIAL INJ (08:48)
[2020-07-12] MEDS: BUPIVACAINE LIPOSOME 266 MG/20 ML VIAL INJ (08:48)
[2020-07-12] MEDS: MORPHINE 4 MG/ML INJ INJ (08:49)
--- NOTE | 2020-07-12 09:53 | P.OP_ITS ---
Operative Date/Time/Diagnoses Date of procedure: 07/12/20 Time of procedure: 09:53 Pre-op diagnosis: Right knee osteoarthritis Post-op diagnosis: same Procedure & Clinicians Procedure: Right total knee replacement Same procedure as scheduled: Yes Indications: The patient has had progressively worsening right knee pain with radiographic changes consistent with arthritis. Non-operative management has failed and the patient has requested total knee replacement. The risks, benefits and alternatives to surgery were discussed with the patient prior to proceeding. Risks discussed included, but were not limited to, failure to relieve pain, stiffness, infection, nerve damage, deep venous thrombosis, pulmonary embolism, stroke, coma, heart attack, permanent paralysis and , as well as the potential need for eventual revision of the prosthetic. Surgeon: Talon Hodge Dog Races Manager: Victor M Lockett Click Yes if Unassisted: No Anesthesia Type: General, Spinal and Local Operative Notes Findings: Severe medial and patellofemoral osteoarthritis with relative preservation of the lateral compartment. Closure Type: primary Specimen(s): none sent Prosthetic devices, grafts, tissues, transplants, or devices: Implants used in this procedure were manufactured by the [employer] and included the BCS II Journey total knee replacement with a size 5 Oxinium femoral component, a size 4 right non porous tibial base plate with a 10 mm cross-linked tibial insert and a 35 mm oval Jamee II patella. Applied: implant(s) Estimated Blood Loss (mL): 25 Blood products transfused: none Tourniquet time (min): 50 Procedure in detail: The patient was seen in the pre-operative area, where the patient identified the right knee as the operative site and this was marked with my initials. The patient received pre-operative antibiotics, and was taken to the operating room and placed on the operative table in the supine position. After satisfactory anesthesia, a signals collection technician out was performed. The right leg was encircled with a tourniquet about the proximal thigh, and the leg was prepared from the toes to the tourniquet with ChloroPrep in the usual fashion and draped through sterile drapes. The leg was elevated and exsanguinated with Eschmark bandage and the tourniquet inflated to 250 mmHg pressure. The knee was approached through an approximately 18 cm incision centered over the patella and carried into the knee through a medial parapatellar arthrotomy. The anterior osteophytes and soft tissues were removed. The rotational landmarks of Amherst's line and the transepicondylar axis were marked on the femur with electrocautery, and intramedullary guide holes for the femur and tibia were created. The distal femoral cut was made in 6 degrees of valgus using the intramedullary guide set between the 2+ and the primary cut setting due to a mild flexion contracture. The proximal tibial cut was then made using the intramedullary guide, taking 9 mm of bone off the less involved side. The extension gap was checked and the rotation of the femoral component confirmed with the gap balancing system. The anterior, posterior and chamfer cuts were then made. The posterior osteophytes and soft tissues were then removed. The posterior capsule was injected with part of a mixture of 50 ml 0.25% Marcaine mixed with 20 ml Exparel and 4 mg of morphine for post-operative pain control. The remainder of this mixture was injected into the capsule and subcutaneous tissues during cement curing. The tibia was prepared with the rotation set by an extra medullary guide. Trial tibial and femoral components were then placed and the intercondylar notch cut through the femoral trial. Range of motion was 0-135 degrees, with good stability throughout the range. The patella was then cut to accommodate the patellar prosthetic. There was no need for a lateral release. The trials were then removed, and the femoral hole plugged with a bone plug. The bone was prepared with pulsatile lavage, and dried with a sponge. Cement was applied and the final prosthetics placed. Excess cement was removed during and after cement curing. After confirming there was no extruded cement posteriorly, the final tibial insert was placed. The knee was copiously irrigated and the tourniquet deflated. Hemostasis was obtained. The capsule was closed with interrupted # 2 polyester suture. The subcutaneous layer was closed with 3-0 Vicryl, and the skin with a running 3-0 V-Lock suture and Dermabond. An Aquacel Ag dressing was applied and the patient was taken to recovery having tolerated the procedure well. Complications: none Post-operative Condition: stable Disposition: PACU Plan for aftercare: The patient will be maintained on a standard total knee replacement protocol with weight bearing as tolerated. The patient will receive aspirin and sequential compression devices for DVT prophylaxis. The patient will be discharged home when safe for the home environment.
[2020-07-12] MEDS: diphenhydrAMINE 50 MG/ML VIAL 25 MG IV (10:39)
[2020-07-12] MEDS: LACTATED RINGERS 1,000 ML 100 ML IV (11:32)
[2020-07-12] MEDS: ONDANSETRON 4 MG/2 ML INJ IV (11:47)
--- NOTE | 2020-07-12 12:11 | PC.ADMIT ---
[address] Admission Note:Patient arrived on the floor at 1216. Patient VSS, lung sounds clear, bowel tones active. Patient tolerating PO intake. Patient is severely itchy. Patient given Benadryl in PACU and Zofran once admitted. Patient is still itching severely. PACU notified to talk to Dr. Hodge to find a medication to help with itching. Patient has aquacel dressing with acewrap CDI, CMS is positive and patient has LR@100ml/hr. Bed alarm active, call light within reach, bed is low and locked. The patient,Caitlyn Burr,70 y/o, was given written information regarding hospital policies, unit procedures and contact persons. Patient's smoking status: Former smoker. Vital Signs - 8 hr 07/12/20 06:46 07/12/20 10:03 07/12/20 10:09 Temperature 98.0 F 99.4 F Pulse Rate 101 H 105 H 101 H Respiratory Rate 19 12 10 L Blood Pressure 168/77 H 130/57 L 130/61 Pulse Oximetry 97 88 L 97 07/12/20 10:13 07/12/20 10:18 07/12/20 10:24 Temperature Pulse Rate 102 H 102 H 100 H Respiratory Rate 93 H 13 16 Blood Pressure 122/69 131/68 129/66 Pulse Oximetry 16 L 92 93 07/12/20 10:35 07/12/20 10:44 07/12/20 10:54 Temperature 98.2 F Pulse Rate 103 H 102 H 102 H Respiratory Rate 13 12 14 Blood Pressure 125/57 L 124/63 130/62 Pulse Oximetry 95 93 93
[2020-07-12] MEDS: diphenhydrAMINE 25 MG TABLET PO ×2 (12:42→17:05)
[2020-07-12] MEDS: ACETAMINOPHEN 325 MG TABLET 650 MG PO ×2 (14:36→21:25)
--- NOTE | 2020-07-12 14:45 | PT.IIE ---
Surgery Performed Operation Date: 07/12/20 07:45 Actual Procedures p Total Knee Arthroplasty(Right) - Talon Hodge MD Surgical History (Last Updated 06/29/20 @ 11:36 by Lis Devlin, RN) H/O: hysterectomy History of bilateral tubal ligation History of decompression of both ulnar nerves History of hemilaminectomy Hx of appendectomy Hx of arthroscopy of right knee Hx of bladder repair surgery Hx of laparoscopy Hx of microdiscectomy Hx of microdiscectomy (11/17/16) Hx of rhinoplasty Hx of toe surgery Hx of tonsillectomy S/P cervical spinal fusion (06/26/16) S/P tendon repair Medical History (Last Updated 07/05/20 @ 09:55 by Lis Devlin, RN) Anxiety about health Asthma Controlled diabetes mellitus type II without complication COPD (chronic obstructive pulmonary disease) Coronary artery calcification Fatty liver Former smoker Functional urinary incontinence Ganglion cyst of dorsum of right wrist GERD (gastroesophageal reflux disease) History of PFTs (~02/2019) History of pneumonia HTN (hypertension) Hyperlipidemia Hypothyroid Keratosis Leukocytosis Numbness and tingling Panic attacks Polycythemia Pulmonary nodules Restless leg syndrome Sleep apnea Vertigo Vitamin D deficiency Vocal cord dysfunction Physical Therapy Inpatient Evaluation/Re-Eval M1 PT/OT-IP Prior Functional Status Start: 07/12/20 13:29 Freq: NEEDED Status: Active Protocol: Document 07/12/20 14:45 AW (Rec: 07/12/20 14:56 AW [id number]) Medical Review Prior Functional Status Medical History Reviewed Yes Communication Pt is an effective verbal communicator. Mobility and Gait Pt reports she occasionally uses a SPC or FWW for household and short distance community ambulation depending on pain. With less pain, she uses no device. Activities of Daily Living and IADL's Pt is independent with all ADL 's. Pt deals with urinary urgency. Prior Functional Level (Other details) Pt reports 4 non-injurious falls over the past two years. Social History Household Members spouse Living Arrangements House Number of Floors (Floors) One Floor Number of Stairs To Enter/Railing? 2 [id number] with right rail ascending both through the garage and at the front door. Home Environment High Toilet,Walk in Shower Home Equipment Front Wheel Walker,Quad Cane, Straight Cane,Bedside Commode, Hand Held Shower,Long Handled Shoe Horn,Engineering Research Manager,Grab Bars Near Toilet,Grab Bars In Shower Employment Status Retired Additional Social History Comment Pt lives with her who is unable to assist due to his own limitations. M2 PT-IP Current Condition Start: 07/12/20 13:29 Freq: NEEDED Status: Active Protocol: Document 07/12/20 14:45 AW (Rec: 07/12/20 14:57 AW [id number]) Physical Therapy Current Condition Current Condition Evaluation Date 07/12/20 Treatment Diagnosis s/p R TKA; difficulty in walking Onset Date 07/12/20 Weight Bearing Status Weight Bearing Status Weight Bear as Tolerated M3 PT-IP Subjective Start: 07/12/20 13:29 Freq: NEEDED Status: Active Protocol: Document 07/12/20 14:45 AW (Rec: 07/12/20 14:57 AW [id number]) Subjective Physical Therapy Visit Type Type Initial Evaluation Visit Start Time 14:08 Visit Stop Time 14:45 Total Visit Minutes 37 Number of UTILIZATION REVIEW COORDINATOR Visits 0 Physical Therapy Visit Comments Patient Comments Pt is willing to participate with PT Therapy Pain Assessment Pain When Pain Assessed During Mobility Pain Present Pain Present Pain Reported Location right knee Intensity 1 Scale Used Numeric (0 - 10) Description Aching Pain Management Techniques Re-positioning,Timing of Activity with Medications M4 PT-IP Mobility and Gait Start: 07/12/20 13:29 Freq: NEEDED Status: Active Protocol: Document 07/12/20 14:45 AW (Rec: 07/12/20 15:51 AW [id number]) PT-Bed Mobility Assessment Supine to Sit Supine to Sit Contact Guard Assistance,Head of Bed Elevated,Bedrails Scooting Scooting to Edge of Bed Standby Assistance PT-Transfer Assessment Sit to and From Stand Sit to and from Stand Minimal Assistance,1 Person Assistance,Use of Upper Extremities Equipment Transfer Assistive Device Gait Belt,Front Wheeled Walker Orthotic/Prosthetic Devices or Brace: No Transfers Transfer Destination Chair,Bedside Commode Transfer Technique Stand Step Pivot Transfer Ability Level of Assist Minimal Assistance,1 Person Assistance,Use of Upper Extremities Comments Mobility Comments Pt was sitting up in bed as PT arrived. BP was 144/77 HR 99Pt did not feel comfortable attempting supine to sit so HOB was raised. She transitioned to sitting EOB CGA. She stood from the bed min A x 1 and used the FWW to support herself while bringing her right leg underneath her. She was able to laterally shift her weight. She then did step pivot transfer to the [facility] set up on her left side min A x 1. She voided and then stood to manage pericare on her own with min assist for balance. She then ambulated 5 feet to the chair with FWW CGA and sat with cues for sequencing and min assist for control of descent. Pt was positioned on the chair with call light and all needs in reach, fresh ice pack applied. Gait Assessment Gait Gait Assistance Required: Contact Guard Assist Distance (Feet) 5 Able to Maintain Weight Bearing Status Yes During Gait Assistive Devices Assistive Device Gait Belt,Front Wheeled Walker Orthotic/Prosthetic Devices or Brace: No Gait Deviations General Gait Pattern Antalgic,Decreased Stride Length,Decreased Feet Clearance,Flexed Trunk,Step-to Gait Factors Limiting Gait Function Factors Limiting Gait Function Decreased Activity Tolerance, Decreased Strength,Limited Range of Motion,Pain,Poor Balance,Poor Safety Awareness Comments Gait Comments Pt avoided WB on RLE during gait but was able to stand with relatively equal WB in static stance. Stair Climbing Assessment Comments Stair Climbing Comments Not assessed. PT-Balance Assessment Sitting Balance and Reactions Static Sitting Balance Ability Good Dynamic Sitting Balance Ability Good Standing Balance and Reactions Static Standing Balance Ability Fair Dynamic Standing Balance Ability Fair Device Used FWW M5 PT-IP Objective Assessments Start: 07/12/20 13:29 Freq: NEEDED Status: Active Protocol: Document 07/12/20 14:45 AW (Rec: 07/12/20 15:51 AW [id number]) Orientation Orientation/Cognition Level of Alertness Alert Orientation Name,Day of Week,Place, Situation Language Function Ability No Deficits Noted Safety Awareness Decreased Safety Awareness Gross Range of Motion Lower Extremity ROM Assessment Right Impaired Strength Lower Extremity Strength Assessment Right Impaired Hip 4-/5 Comments Strength Comments LLE grossly 4-/5 Sensation Assessment Sensation Gross Sensation WNL Muscle Tone Muscle Tone WNL Yes M6 PT-IP Treatment Start: 07/12/20 13:29 Freq: NEEDED Status: Active Protocol: Document 07/12/20 14:45 AW (Rec: 07/12/20 15:51 AW [id number]) Physical Therapy Treatment Exercises Exercises Ankle Pumps,Gluteal Sets,Heel Slides,Passive Knee Extension Hang Other Treatments Other Treatment Performed Educated pt on role of PT, plan of care, weightbearing status, and safe use of FWW. M7 PT-IP Assessment and Plan Start: 07/12/20 13:29 Freq: NEEDED Status: Active Protocol: Document 07/12/20 14:45 AW (Rec: 07/12/20 15:51 AW [id number]) PT Summary Assessment and Plan Potential Rehabilitation Potential Good Status of Condition at Evaluation Evolving Summary Impairments Pain,ROM,Strength,Balance,Bed Mobility,Transfers,Gait, Activity Tolerance Assessment Summary Caitlyn is a 70 yo woman seen for PT evaluation on POD0 following R TKA. She is modified independent for mobility at baseline with use of quad cane or FWW but reports she often walks without any device. On evaluation, pt required CGA to min assist for all mobility. She has no assist at home and will need to progress her independent mobility prior to discharge. Home health services may be required. Goals Bed Mobility Goal Independent Transfer Goal Independent,Front Wheeled Walker Gait Goal Independent,Front Wheel Walker Gait Distance 100 Other Goals - up/down 2 steps with R rail ascending SBA Days to Meet Goals 5 Frequency of Treatment Frequency Of Treatment Twice a Day Treatment Plan Physical Therapy Treatment Plan Bed Mobility Training,Transfer Training,Gait Training, Therapeutic Exercise,Balance Retraining,Post Op Education, Discharge Planning,Hot or Cold Pack Other Recommendations and Next Treatment ambulation; stairs when able Focus Recommendations To Nursing Amount of Assist Needed 1 Person Assist Discharge Recommendations PT Discharge Recommendations Home with Assistance,Home Health Transportation Needs at Discharge Private Vehicle
[2020-07-12] MEDS: METFORMIN HCL 500 MG TABLET 1000 MG PO (17:05)
[2020-07-12] MEDS: ASPIRIN EC 81 MG TABLET PO (21:24)
[2020-07-12] MEDS: PRAVASTATIN 20 MG TABLET PO (21:25)
[2020-07-12] MEDS: TRAZODONE 50 MG TABLET PO (21:25)
[2020-07-12] MEDS: FENOFIBRATE 145 MG TABLET PO (21:25)
[2020-07-12] MEDS: glipiZIDE 5 MG TABLET PO (21:25)
[2020-07-12] MEDS: diazePAM 5 MG TABLET PO (21:25)
[2020-07-12] MEDS: DOCUSATE 100 MG CAPSULE PO (21:25)
[2020-07-12] MEDS: OXYCODONE IR 10 MG TABLET PO (21:28)
[2020-07-12] MEDS: HYDROMORPHONE 0.5 MG INJ 0.2 MG IV ×2 (21:30→23:49)
[2020-07-12] MEDS: VENLAFAXINE 37.5 MG TABLET 75 MG PO (21:31)
[2020-07-13] MEDS: HYDROMORPHONE 0.5 MG INJ 0.2 MG IV ×3 (01:49→03:56)
[2020-07-13] MEDS: OXYCODONE IR 10 MG TABLET PO ×6 (02:05→21:09)
[2020-07-13 04:11] VITALS: BP 154/81; PULSE 100; RESP 18; TEMP 38.1; O2SAT 93
[2020-07-13] MEDS: HYDROMORPHONE 0.5 MG INJ IV ×5 (05:03→16:14)
[2020-07-13] MEDS: diazePAM 5 MG TABLET PO ×3 (05:03→21:12)
[2020-07-13 05:10] VITALS: TEMP 37.7
--- NOTE | 2020-07-13 05:36 | PC.NURSE ---
pt has had 7-8/10 pain through out the night, pt reports that pain improves slightly for about an hour or two after pain meds. Pt was given IV dilauded 0.2mg Q1 hours, and 10mg oxy Q3 hours. Provider was notified and new orders were given for 0.5mg IV dilauded and to continue with other scheduled and PRN meds. provider was also notified that pt was having temps at 99 to 100.6 and did not have PRN Tylenol, next scheduled Tylenol was not until 0900. Provided did not give any new orders and said to continue with scheduled Tylenol only.
[2020-07-13 06:08] LABS: Hematocrit 38.5 % (36-46); Hemoglobin 12.6 g/dL (12.0-16.0)
--- NOTE | 2020-07-13 07:36 | PM.PNPO.1 ---
Subjective Subjective Date Patient Seen: 07/13/20 Time Patient Seen: 07:36 Interval history: The patient complains of significant discomfort overnight. She has required multiple doses of parenteral narcotics for pain control. Exam Vital Signs (past 8 hours): - 07/13/20 04:11 07/13/20 05:10 Temperature 100.6 F H 99.8 F H Pulse Rate 100 H Respiratory Rate 18 Blood Pressure 154/81 H Pulse Oximetry 93 Oxygen Delivery Method Nasal Cannula Oxygen Flow Rate 2 Narrative Exam Narrative: Right knee wound is dressed with no drainage on the bandage. Calf is soft. Light touch and motion are intact in the right lower extremity. Objective Labs Result Diagrams: 07/13/20 05:28 Labs: Laboratory Results - last 24 hr 07/13/20 05:28 Hgb 12.6 Hct 38.5 PFSH Medical History (Updated 07/05/20 @ 09:55 by Lis Devlin RN) Anxiety about health Asthma Controlled diabetes mellitus type II without complication COPD (chronic obstructive pulmonary disease) Coronary artery calcification Fatty liver Former smoker Functional urinary incontinence Ganglion cyst of dorsum of right wrist GERD (gastroesophageal reflux disease) History of PFTs (~02/2019) History of pneumonia HTN (hypertension) Hyperlipidemia Hypothyroid Keratosis Leukocytosis Numbness and tingling Panic attacks Polycythemia Pulmonary nodules Restless leg syndrome Sleep apnea Vertigo Vitamin D deficiency Vocal cord dysfunction Surgical History (Updated 06/29/20 @ 11:36 by Lis Devlin RN) H/O: hysterectomy History of bilateral tubal ligation History of decompression of both ulnar nerves History of hemilaminectomy Hx of appendectomy Hx of arthroscopy of right knee Hx of bladder repair surgery Hx of laparoscopy Hx of microdiscectomy Hx of microdiscectomy (11/17/16) Hx of rhinoplasty Hx of toe surgery Hx of tonsillectomy S/P cervical spinal fusion (06/26/16) S/P tendon repair Social History household members: spouse Smoking Status: Former smoker alcohol intake: current Assessment & Plan Post-op Postoperative Procedures: Procedures Operation Date: 07/12/20 07:45 Actual Procedures Side Surgeon p Total Knee Arthroplasty Right Talon Hodge MD Postoperative day: 1 Postoperative status: doing well, marginal pain control and anemia Postoperative status narrative: The patient is postop day 1 status post right total knee replacement with marginal pain control. She has a high anxiety level at baseline and I think this is contributing to her lack of pain control. She has a mild post hemorrhagic anemia. Postoperative plan: routine post-op care and ambulate Postoperative plan narrative: Patient will be maintained in the hospital as she still requires IV narcotics currently. She will be mobilized with physical therapy. I have had a discussion with her regarding the fact that significant discomfort is a normal occurrence after total knee replacement and that she will see relief with time. Time Spent With Patient Time with patient: less than 15 minutes Quality VTE Deep Vein Thrombosis/Pulmonary Embolism Present on Admission: No
[2020-07-13 08:00] VITALS: BP 159/79; PULSE 97; RESP 24; TEMP 37.4; O2SAT 93
[2020-07-13] MEDS: hydrOXYzine pamoate 25 MG CAPSULE PO ×2 (08:25→14:38)
[2020-07-13] MEDS: SPIRONOLACTONE 25 MG TABLET 100 MG PO (08:29)
[2020-07-13] MEDS: PRAVASTATIN 20 MG TABLET PO ×2 (08:29→21:09)
[2020-07-13] MEDS: ASPIRIN EC 81 MG TABLET PO ×2 (08:29→21:09)
[2020-07-13] MEDS: hydroCHLOROthiazide 25 MG TABLET PO (08:29)
[2020-07-13] MEDS: DOCUSATE 100 MG CAPSULE PO ×2 (08:29→21:09)
[2020-07-13] MEDS: glipiZIDE 5 MG TABLET PO ×2 (08:29→21:09)
[2020-07-13] MEDS: ACETAMINOPHEN 325 MG TABLET 650 MG PO ×3 (08:29→21:09)
[2020-07-13] MEDS: OXYBUTYNIN 5 MG ER TAB 15 MG PO (08:33)
[2020-07-13] MEDS: METFORMIN HCL 500 MG TABLET 1000 MG PO ×2 (08:38→16:14)
[2020-07-13 11:00] VITALS: BP 152/81; PULSE 104; RESP 20; TEMP 36.9; O2SAT 92
--- NOTE | 2020-07-13 12:49 | PT.IPTN ---
Surgery Performed Operation Date: 07/12/20 07:45 Actual Procedures p Total Knee Arthroplasty(Right) - Talon Hodge MD Physical Therapy Treatment Note M2 PT-IP Current Condition Start: 07/12/20 13:29 Freq: NEEDED Status: Active Protocol: Document 07/12/20 14:45 AW (Rec: 07/12/20 14:57 AW [id number]) Physical Therapy Current Condition Current Condition Evaluation Date 07/12/20 Treatment Diagnosis s/p R TKA; difficulty in walking Onset Date 07/12/20 Weight Bearing Status Weight Bearing Status Weight Bear as Tolerated M3 PT-IP Subjective Start: 07/12/20 13:29 Freq: NEEDED Status: Active Protocol: Document 07/13/20 12:38 HH (Rec: 07/13/20 12:49 HH [email or web address]) Subjective Physical Therapy Visit Type Type Treatment Note Visit Start Time 10:01 Visit Stop Time 10:20 Total Visit Minutes 19 Number of MACHINE PACKAGER Visits 0 Physical Therapy Visit Comments Patient Comments Im in so much pain earlier and i can hardly move Therapy Pain Assessment Pain When Pain Assessed During Mobility Pain Present Pain Present Pain Reported Location right knee Intensity 3 Scale Used Numeric (0 - 10) Description Aching Pain Management Techniques Re-positioning,Timing of Activity with Medications M4 PT-IP Mobility and Gait Start: 07/12/20 13:29 Freq: NEEDED Status: Active Protocol: Document 07/13/20 12:38 HH (Rec: 07/13/20 12:49 HH [email or web address]) PT-Bed Mobility Assessment Supine to Sit Supine to Sit Minimal Assistance,1 Person Assistance,Bedrails Scooting Scooting to Edge of Bed Standby Assistance PT-Transfer Assessment Sit to and From Stand Sit to and from Stand Minimal Assistance,1 Person Assistance,Use of Upper Extremities Equipment Transfer Assistive Device Gait Belt,Front Wheeled Walker Orthotic/Prosthetic Devices or Brace: No Transfers Transfer Destination Chair,Bedside Commode Transfer Technique Stand Pivot Transfer Ability Level of Assist Minimal Assistance,1 Person Assistance,Use of Upper Extremities Comments Mobility Comments Pt was in laying in bed upon PT arrival. Pain at 3/10 but she stated This pain is killing me. Took a few minutes to persuade pt to participate PT. Pt requested to use BSC. She then sat up to long sit position with 1 SINGLE STROKE PREFORMER on L arm and R arm on bed rail . Pt completed it very slowly and pivoted to R EOB. She was able to scoot to EOB with SBA. Pt then stood up with min A but unable to extend her R LE and WB on it d./t pain. Pt used stand pivot on LLE and pivoted to L side with FWW and sat down on BSC. pt voided and she stood up again with LLE to push off. She was able to extend her RLE partially and WB through midfoot. Pt then walked 4 steps with antalgic pattern and stand pivoted again to L side and sat down on chair with CGA. Pt sat in chair in reclined position comfortably after. Call light placed within reach . Gait Assessment Gait Gait Assistance Required: Contact Guard Assist Distance (Feet) 3 Able to Maintain Weight Bearing Status Yes During Gait Assistive Devices Assistive Device Gait Belt,Front Wheeled Walker Orthotic/Prosthetic Devices or Brace: No Gait Deviations General Gait Pattern Antalgic,Decreased Stride Length,Decreased Feet Clearance,Flexed Trunk,Step-to Gait Factors Limiting Gait Function Factors Limiting Gait Function Decreased Activity Tolerance, Decreased Strength,Limited Range of Motion,Pain,Poor Balance,Poor Safety Awareness Comments Gait Comments Pt avoided WB on RLE during gait but was able to stand with relatively equal WB in static stance with practice Stair Climbing Assessment Comments Stair Climbing Comments Not assessed. PT-Balance Assessment Sitting Balance and Reactions Static Sitting Balance Ability Good Dynamic Sitting Balance Ability Good Standing Balance and Reactions Static Standing Balance Ability Fair Dynamic Standing Balance Ability Fair Device Used FWW M5 PT-IP Objective Assessments Start: 07/12/20 13:29 Freq: NEEDED Status: Active Protocol: Document 07/12/20 14:45 AW (Rec: 07/12/20 15:51 AW [id number]) Orientation Orientation/Cognition Level of Alertness Alert Orientation Name,Day of Week,Place, Situation Language Function Ability No Deficits Noted Safety Awareness Decreased Safety Awareness Gross Range of Motion Lower Extremity ROM Assessment Right Impaired Strength Lower Extremity Strength Assessment Right Impaired Hip 4-/5 Comments Strength Comments LLE grossly 4-/5 Sensation Assessment Sensation Gross Sensation WNL Muscle Tone Muscle Tone WNL Yes M6 PT-IP Treatment Start: 07/12/20 13:29 Freq: NEEDED Status: Active Protocol: Document 07/12/20 14:45 AW (Rec: 07/12/20 15:51 AW [id number]) Physical Therapy Treatment Exercises Exercises Ankle Pumps,Gluteal Sets,Heel Slides,Passive Knee Extension Hang Other Treatments Other Treatment Performed Educated pt on role of PT, plan of care, weightbearing status, and safe use of FWW. M7 PT-IP Assessment and Plan Start: 07/12/20 13:29 Freq: NEEDED Status: Active Protocol: Document 07/13/20 12:38 HH (Rec: 07/13/20 12:49 HH [email or web address]) PT Summary Assessment and Plan Potential Rehabilitation Potential Good Status of Condition at Evaluation Evolving Summary Impairments Pain,ROM,Strength,Balance,Bed Mobility,Transfers,Gait, Activity Tolerance Progress Towards Goals Slow Progress due to Pain,Slow Progress due to Medical Issues,Slow Progress due to Activity Tolerance Assessment Summary pt cont to progress very slowly d/t significant pain at her R knee. Pt only able to complete stand pivot to BSC/ chair and with difficulty WB on RLE. If pt cont to have this amount of difficulty,DC to SNF might be a better option for her. Goals Bed Mobility Goal Independent Transfer Goal Independent,Front Wheeled Walker Gait Goal Independent,Front Wheel Walker Gait Distance 100 Other Goals - up/down 2 steps with R rail ascending SBA Days to Meet Goals 5 Frequency of Treatment Frequency Of Treatment Twice a Day Treatment Plan Physical Therapy Treatment Plan Bed Mobility Training,Transfer Training,Gait Training, Therapeutic Exercise,Balance Retraining,Post Op Education, Discharge Planning,Hot or Cold Pack Other Recommendations and Next Treatment ambulation; stairs when able Focus Recommendations To Nursing Amount of Assist Needed 1 Person Assist Discharge Recommendations PT Discharge Recommendations Home with Assistance,Home Health,SNF Rehab Transportation Needs at Discharge Private Vehicle
--- NOTE | 2020-07-13 15:21 | PT.IPTN ---
Surgery Performed Operation Date: 07/12/20 07:45 Actual Procedures p Total Knee Arthroplasty(Right) - Talon Hodge MD Physical Therapy Treatment Note M2 PT-IP Current Condition Start: 07/12/20 13:29 Freq: NEEDED Status: Active Protocol: Document 07/12/20 14:45 AW (Rec: 07/12/20 14:57 AW [id number]) Physical Therapy Current Condition Current Condition Evaluation Date 07/12/20 Treatment Diagnosis s/p R TKA; difficulty in walking Onset Date 07/12/20 Weight Bearing Status Weight Bearing Status Weight Bear as Tolerated M3 PT-IP Subjective Start: 07/12/20 13:29 Freq: NEEDED Status: Active Protocol: Document 07/13/20 15:12 HH (Rec: 07/13/20 15:21 HH [email or web address]) Subjective Physical Therapy Visit Type Type Treatment Note Visit Start Time 14:40 Visit Stop Time 15:02 Total Visit Minutes 22 Number of ARMAMENT REPAIRER Visits 0 Physical Therapy Visit Comments Patient Comments Im feeling better but i think im more nervous than the actual pain Therapy Pain Assessment Pain When Pain Assessed During Mobility Pain Present Pain Present Pain Reported Location right knee Intensity 3 Scale Used Numeric (0 - 10) Description Aching Pain Management Techniques Re-positioning,Timing of Activity with Medications M4 PT-IP Mobility and Gait Start: 07/12/20 13:29 Freq: NEEDED Status: Active Protocol: Document 07/13/20 15:12 HH (Rec: 07/13/20 15:21 HH [email or web address]) PT-Bed Mobility Assessment Supine to Sit Supine to Sit Minimal Assistance,1 Person Assistance,Bedrails Sit to Supine Sit to Supine Minimal Assistance,1 Person Assistance Scooting Scooting to Edge of Bed Standby Assistance PT-Transfer Assessment Sit to and From Stand Sit to and from Stand Minimal Assistance,1 Person Assistance,Use of Upper Extremities Equipment Transfer Assistive Device Gait Belt,Front Wheeled Walker Orthotic/Prosthetic Devices or Brace: No Transfers Transfer Destination Chair,Bedside Commode Transfer Technique Stand Pivot Transfer Ability Level of Assist Minimal Assistance,1 Person Assistance,Use of Upper Extremities Comments Mobility Comments Pt was in bed upon PT arrival who just received pain medication. Pain at 3/10. Pt was very drowsy like earlier. Pt completed supine to long sit with 1bedrail CGA. She used L LE to lift RLE to pivot to EOB. Pt then stood up with FWW and LLE min A and slowly stand pivoted to her L side and sat on BSC . Pt voided but needed assistance for brief management. Pt then stood up with min A again and attempted to walk. It was unsuccessful since pt wasnt able to fully WB on RLE. She practiced standing knee extension for 3 mins then sat down and stood up to practice again for another 3 mins. Pt was very fearful on fully WB on RLE but only TTWB. She then sat down after she reports of fatigue. She needed min A for sit to supine by lifting her RLE. Call light placed within reach and pillowed placed underneath her RLE for support . Also educated pt to practice knee extension in supine. Gait Assessment Gait Gait Assistance Required: Contact Guard Assist Distance (Feet) 2 Able to Maintain Weight Bearing Status Yes During Gait Assistive Devices Assistive Device Gait Belt,Front Wheeled Walker Orthotic/Prosthetic Devices or Brace: No Gait Deviations General Gait Pattern Antalgic,Decreased Stride Length,Decreased Feet Clearance,Flexed Trunk,Step-to Gait Factors Limiting Gait Function Factors Limiting Gait Function Decreased Activity Tolerance, Decreased Strength,Limited Range of Motion,Pain,Poor Balance,Poor Safety Awareness Comments Gait Comments Pt avoided WB on RLE during gait but was able to stand with relatively equal WB in static stance with practice Stair Climbing Assessment Comments Stair Climbing Comments Not assessed. PT-Balance Assessment Sitting Balance and Reactions Static Sitting Balance Ability Good Dynamic Sitting Balance Ability Good Standing Balance and Reactions Static Standing Balance Ability Fair Dynamic Standing Balance Ability Fair Device Used FWW M5 PT-IP Objective Assessments Start: 07/12/20 13:29 Freq: NEEDED Status: Active Protocol: Document 07/12/20 14:45 AW (Rec: 07/12/20 15:51 AW [id number]) Orientation Orientation/Cognition Level of Alertness Alert Orientation Name,Day of Week,Place, Situation Language Function Ability No Deficits Noted Safety Awareness Decreased Safety Awareness Gross Range of Motion Lower Extremity ROM Assessment Right Impaired Strength Lower Extremity Strength Assessment Right Impaired Hip 4-/5 Comments Strength Comments LLE grossly 4-/5 Sensation Assessment Sensation Gross Sensation WNL Muscle Tone Muscle Tone WNL Yes M6 PT-IP Treatment Start: 07/12/20 13:29 Freq: NEEDED Status: Active Protocol: Document 07/12/20 14:45 AW (Rec: 07/12/20 15:51 AW [id number]) Physical Therapy Treatment Exercises Exercises Ankle Pumps,Gluteal Sets,Heel Slides,Passive Knee Extension Hang Other Treatments Other Treatment Performed Educated pt on role of PT, plan of care, weightbearing status, and safe use of FWW. M7 PT-IP Assessment and Plan Start: 07/12/20 13:29 Freq: NEEDED Status: Active Protocol: Document 07/13/20 15:12 HH (Rec: 07/13/20 15:21 HH [email or web address]) PT Summary Assessment and Plan Potential Rehabilitation Potential Good Status of Condition at Evaluation Evolving Summary Impairments Pain,ROM,Strength,Balance,Bed Mobility,Transfers,Gait, Activity Tolerance Progress Towards Goals Slow Progress due to Pain,Slow Progress due to Medical Issues,Slow Progress due to Activity Tolerance Assessment Summary pt cont to show very fearful to WB on RLE. She only tolerates to standing knee extension and TTWB. She only did stand pivot transfer to [facility] only for this visit. If pt cont to have this amount of difficulty,DC to SNF might be a better option for her. Goals Bed Mobility Goal Independent Transfer Goal Independent,Front Wheeled Walker Gait Goal Independent,Front Wheel Walker Gait Distance 100 Other Goals - up/down 2 steps with R rail ascending SBA Days to Meet Goals 5 Frequency of Treatment Frequency Of Treatment Twice a Day Treatment Plan Physical Therapy Treatment Plan Bed Mobility Training,Transfer Training,Gait Training, Therapeutic Exercise,Balance Retraining,Post Op Education, Discharge Planning,Hot or Cold Pack Other Recommendations and Next Treatment ambulation; stairs when able Focus Recommendations To Nursing Amount of Assist Needed 1 Person Assist Discharge Recommendations PT Discharge Recommendations Home with Assistance,Home Health,SNF Rehab Transportation Needs at Discharge Private Vehicle
[2020-07-13 15:36] VITALS: BP 162/74; PULSE 107; RESP 20; TEMP 36.5; O2SAT 93
--- NOTE | 2020-07-13 16:36 | CM.DANOTE ---
DCP ASSESSMENT: Patient is a 70 year-old female who was admitted to hospital after a right total knee arthroplasty. PCP is Dr. Wilfredo Mccoy. Primary payer is Medicare and [employer]. 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 Patient presented and endorsed feeling anxious, she reported feeling as if her pain is not controlled, she also presented as a poor historian. Patient lives at home with and is typically independent to include, providing care for her and driving. Therapy is recommending home with assistance, SNF or Home Health. Patient?s preference is to have assistance at home and verbally expressed interest in a SNF placement if insurance would cover. Provided brochure and information regarding self-pay care-givers she can call and explore. Explained SNF placement would be self-pay option as it is not covered by insurance. Patient?s Matt Mendieta is her primary point of contact and will provide transportation home. PLAN: Continued D/C planning potential D/C home with home health CARIN Denny MSW Student Discharge Planning/Care Management CM Discharge Assessment Start: 07/13/20 12:13 Freq: Status: Active Protocol: Document 07/13/20 12:13 AL (Rec: 07/13/20 12:17 AL [id number]) Discharge Planning Assessment Assigned Plate Inspector CARIN Soriano Student Contact Information Reji Lombardo, Son # Advance Directives? No: Declines further information History Provided By Patient,Medical Record Has Patient been admitted in last 30 No days? Prior Living Arrangements House Household Members spouse Type of transporation used prior to Drives own vehicle admit Independent with ADL's Yes Is patient alert and oriented? Yes Caregiver for Another Yes: who is 16 years her senior DME Already Rented / Owned FWW / Walker,Cane Barriers to Discharge No Discharge Plan Home Transportation Arrangement Patients son to provide transportation Whiteboard Updated in Patient Room with Yes name and ext. 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 Patient Information Reviewed Via Chart Review,Phone Assessment Assessment Completed With Patient Diagnostic Results BMP/CMP,CBC,EKG,Other Comment Covid / IH, A1c, Transferrin Primary Care Provider Wilfredo Mccoy Medical Clearance Received Yes Seen Specialist in Last 12 Months Yes Specialist Seen Orthopedist,Butcher Apprentice Primary Language Dominican Preferred Language Dominican Ruby On Rails Engineer Required No Height 162.56 cm Weight 90.265 kg Body Mass Index (BMI) 34.1 Hearing Ability Normal Visual Assist Glasses Dentition Type Teeth, Natural Present,Teeth, Broken Barriers to Learning Visual Other Aids No Comment reading glasses, fixed bridge lower right Hx Anesthesia Reactions Yes: Nausea/vomiting post-op Additional comment Hasn't had any issue at IH Hx Family Anesthesia Reaction No Hx Malignant Hyperthermia No Hx Blood Transfusions Yes: 45 years r/t vaginal delivery Hx Blood Transfusion Reaction No Anesthesia Review Requested No General House Worker No alcohol intake current alcohol intake frequency holidays/special occasions only Smoking Status Former smoker Smoking packs per day 2 how long ago did patient quit smoking 1999 Smoking pack-years 40 Substance Use Type does not use Pain Present Denied Pain Musculoskeletal Symptoms Joint Pain History of Falling (Recent or History of Yes ) Patient is completely paralyzed or No completely immobile Ambulatory Aid Crutches/cane/walker Prosthesis or Orthotic Device Cane Gait/Transferring Impaired Mental Status Oriented to own ability Comment arthritis in hands, rides carts in stores Is patient on oxygen? No Does patient have ROD/SOB No Hx Sleep Apnea Yes: Borderline per pt, no equipment CPAP/BIPAP use not prescribed Will Bring CPAP/BIPAP DOS No Comment sleep study 4 years ago, not bad enough for CPAP Currently Taking a Beta Josse No Can You Climb a Flight of Stairs Without Yes: one step at time SOB Hx Chest Pain No Hx SOB No Hx Syncope or Dizziness Yes: r/t Vertigo Anti-Coagulant Therapy No Has a Instructional Design Specialist No Cardiac Testing No Hx Pacemaker/ICD No Cardiac Clearance Received Not Applicable Diet Type At Home Regular dysphagia Yes: can choke 'if I'm not careful' Gastrointestinal Symptoms Reflux Bladder Pattern Nocturia Hx Urinary Self Catheterization No Diabetes Yes: Pt does not check blood sugars, I feel fine HgbA1C 7.4 Comment office note 06/03/18 Patient No Lactating No Hx Drug Resistant Organism No Presence of External or Internal Medical No Devices Have you had any close contact with No someone diagnosed with COVID-19? Are you experiencing any of these No symptoms symptoms? Evaluation/Screening for possible COVID- No 19 infection completed? Comment has had 1st Covid shot Marital Status Lives With spouse Prior Living Arrangements House Number of Floors (Floors) One Floor Number of Stairs To Enter/Railing? 2 steps into house Support System Family Does the Patient Have Assistance After Yes: Not enough help Surgery Patient Discharge Plan Description Return Home Comment Daughter will be with her the first night, then she's 'on my own' Additional comment Spouse is 16 years older, falls a lot, is deaf;trying to get sister to help Feels Safe in Current Environment Yes Been Physically Hurt or Threatened By a No Person in Current Environment Do you have thoughts of harming yourself None or others? Are you currently considering suicide? No Do you have a plan to hurt yourself or No Plan others? Do You Have Any Spiritual Beliefs That No May Affect Your HC Choices? Do You Have Any Cultural Practices That No May Affect Your HC Choices? Who Can We Speak to About Patient's Care Family - Zoila Mendoza Frances (spouse - [facility]) Identifying Code for Release of Patient ask middle initial, (M or Information Wendy) Health Care Proxy/Next of Kin , son, and daughter as listed above. Call son for Life threatening Health Care Proxy Phone Number Reji Kong [phone] Emergency Contact Name Ahmet () or Zoila (daughter) Emergency Contact Phone Number Ahmet: [phone], Zoila: [phone] Comment Lance Kong is a PA in [place] Advance Directives? No: Declines further information Power of Library Clerk Talking Books No PAC Instructions Assistance for 24 hours post- op,Diabetes instructions,Do not shave/clip surgical site, Durable medical equipment, Medications to take/avoid, Nasal antibiotic,No ETOH/ petroleum product on skin DOS, NPO,Post-op transportation,Pre -op antibiotic,Pre-surgical wash,Sensory aids,Sturdy shoes /comfortable clothes,Do not bring valuables and remove jewelry Stop Bang Assessment Do you snore loudly (louder than talking No or loud enough to be heard through closed doors) Do you often feel tired, fatigued or Yes sleepy during the daytime Has anyone ever observed you stop No breathing while sleeping? Do you have, or are you being treated Yes for, high blood pressure Is your BMI more than 35 kg/m2 No Age over 50 Yes Estimated neck circumference greater No than 40cm or 16in Gender male No Result Negative
[2020-07-13 19:24] VITALS: BP 130/71; PULSE 111; RESP 20; TEMP 36.3; O2SAT 92
[2020-07-13] MEDS: TRAZODONE 50 MG TABLET PO (21:09)
[2020-07-13] MEDS: FENOFIBRATE 145 MG TABLET PO (21:09)
[2020-07-13] MEDS: VENLAFAXINE 37.5 MG TABLET 75 MG PO (21:16)
[2020-07-14] VITALS (8 sets, daily range): BP systolic 140–152; BP diastolic 63–85; PULSE 54–111; RESP 16–108; TEMP 36.5–37.3; O2SAT 92–95
[2020-07-14] MEDS: OXYCODONE IR 10 MG TABLET PO (01:47)
[2020-07-14] MEDS: diazePAM 5 MG TABLET PO ×3 (05:34→20:46)
--- NOTE | 2020-07-14 08:29 | PM.PNPO.1 ---
Subjective Subjective Date Patient Seen: 07/14/20 Time Patient Seen: 08:29 Interval history: The patient reports she is doing ?much better? today. She remains somewhat somnolent, dozing off during the interview this morning. Exam Vital Signs (past 8 hours): - 07/14/20 01:10 07/14/20 04:35 Temperature 98.0 F 98.4 F Pulse Rate 54 L 102 H Respiratory Rate 18 18 Blood Pressure 140/63 152/78 H Pulse Oximetry 93 93 Oxygen Delivery Method Nasal Cannula Oxygen Flow Rate 2 Narrative Exam Narrative: Right knee wound is dressed with no drainage on the bandage. Minimal swelling. Calf is soft. Light touch and motion are intact in the right lower extremity. Objective Labs Result Diagrams: 07/13/20 05:28 [facility] Medical History (Updated 07/05/20 @ 09:55 by Lis Devlin RN) Anxiety about health Asthma Controlled diabetes mellitus type II without complication COPD (chronic obstructive pulmonary disease) Coronary artery calcification Fatty liver Former smoker Functional urinary incontinence Ganglion cyst of dorsum of right wrist GERD (gastroesophageal reflux disease) History of PFTs (~02/2019) History of pneumonia HTN (hypertension) Hyperlipidemia Hypothyroid Keratosis Leukocytosis Numbness and tingling Panic attacks Polycythemia Pulmonary nodules Restless leg syndrome Sleep apnea Vertigo Vitamin D deficiency Vocal cord dysfunction Surgical History (Updated 06/29/20 @ 11:36 by Lis Devlin RN) H/O: hysterectomy History of bilateral tubal ligation History of decompression of both ulnar nerves History of hemilaminectomy Hx of appendectomy Hx of arthroscopy of right knee Hx of bladder repair surgery Hx of laparoscopy Hx of microdiscectomy Hx of microdiscectomy (11/17/16) Hx of rhinoplasty Hx of toe surgery Hx of tonsillectomy S/P cervical spinal fusion (06/26/16) S/P tendon repair Social History household members: spouse Smoking Status: Former smoker alcohol intake: current Assessment & Plan Post-op Postoperative Procedures: Procedures Operation Date: 07/12/20 07:45 Actual Procedures Side Surgeon p Total Knee Arthroplasty Right Talon Hodge MD Postoperative day: 2 Postoperative status: doing well, marginal pain control and anemia Postoperative status narrative: The patient continues to have significant discomfort and is using a moderate amount of narcotic which unfortunately is leading to daytime somnolence. This is interfering with physical therapy. She is doing well transferring out of bed but has limited confidence in putting weight on the leg. Postoperative plan: routine post-op care and ambulate Postoperative plan narrative: We will continue physical therapy to work on ambulation for safe discharge home likely tomorrow. I have talked to the nurses about trying to minimize use of narcotics while providing adequate pain control to try to address the somnolence. Time Spent With Patient Time with patient: less than 15 minutes Quality VTE Deep Vein Thrombosis/Pulmonary Embolism Present on Admission: No
[2020-07-14] MEDS: OXYBUTYNIN 5 MG ER TAB 15 MG PO (08:37)
[2020-07-14] MEDS: METFORMIN HCL 500 MG TABLET 1000 MG PO ×2 (08:37→16:40)
[2020-07-14] MEDS: SPIRONOLACTONE 25 MG TABLET 100 MG PO (08:37)
[2020-07-14] MEDS: ACETAMINOPHEN 325 MG TABLET 650 MG PO ×3 (08:38→20:46)
[2020-07-14] MEDS: hydroCHLOROthiazide 25 MG TABLET PO (08:38)
[2020-07-14] MEDS: DOCUSATE 100 MG CAPSULE PO ×2 (08:38→20:46)
[2020-07-14] MEDS: ASPIRIN EC 81 MG TABLET PO ×2 (08:39→20:46)
[2020-07-14] MEDS: PRAVASTATIN 20 MG TABLET PO ×2 (08:41→20:46)
[2020-07-14] MEDS: SODIUM CHLORIDE 0.9% FLUSH 10 ML IV ×2 (08:42→21:30)
[2020-07-14] MEDS: glipiZIDE 5 MG TABLET PO ×2 (08:42→20:46)
--- NOTE | 2020-07-14 11:28 | PT.IPTN ---
Surgery Performed Operation Date: 07/12/20 07:45 Actual Procedures p Total Knee Arthroplasty(Right) - Talon Hodge MD Physical Therapy Treatment Note M2 PT-IP Current Condition Start: 07/12/20 13:29 Freq: NEEDED Status: Active Protocol: Document 07/12/20 14:45 AW (Rec: 07/12/20 14:57 AW [id number]) Physical Therapy Current Condition Current Condition Evaluation Date 07/12/20 Treatment Diagnosis s/p R TKA; difficulty in walking Onset Date 07/12/20 Weight Bearing Status Weight Bearing Status Weight Bear as Tolerated M3 PT-IP Subjective Start: 07/12/20 13:29 Freq: NEEDED Status: Active Protocol: Document 07/14/20 11:15 HH (Rec: 07/14/20 11:28 HH [id number]) Subjective Physical Therapy Visit Type Type Treatment Note Visit Start Time 09:43 Visit Stop Time 10:05 Total Visit Minutes 23 Number of DRYER FEEDER Visits 0 Physical Therapy Visit Comments Patient Comments im feeling better and my pain is at 2. I could finally get the sleep that i needed. Therapy Pain Assessment Pain When Pain Assessed During Mobility Pain Present Pain Present Pain Reported Location right knee Intensity 2 Scale Used Numeric (0 - 10) Description Aching Pain Management Techniques Re-positioning,Timing of Activity with Medications M4 PT-IP Mobility and Gait Start: 07/12/20 13:29 Freq: NEEDED Status: Active Protocol: Document 07/14/20 11:15 HH (Rec: 07/14/20 11:28 HH [id number]) PT-Bed Mobility Assessment Supine to Sit Supine to Sit Contact Guard Assistance,1 Person Assistance,Bedrails Scooting Scooting to Edge of Bed Standby Assistance PT-Transfer Assessment Sit to and From Stand Sit to and from Stand Contact Guard Assistance,1 Person Assistance,Use of Upper Extremities Equipment Transfer Assistive Device Gait Belt,Front Wheeled Walker Orthotic/Prosthetic Devices or Brace: No Transfers Transfer Destination Chair,Bedside Commode Transfer Technique Stand Pivot Transfer Ability Level of Assist Contact Guard Assistance,1 Person Assistance,Use of Upper Extremities Comments Mobility Comments Pt was in bed upon PT arrival and appears to be drowsy like yesterday. Pain at 2/10. She agreed to mobilize with PT. She then got up from supine to seated without help but needed R bedrail. (use of L ankle to lift RLE) She took approx took 20 seconds to complete. Pt then scooted to EOB and stood up with FWW CGA. Pt then used stand pivot to L side for BSC. She sat down with proper descend by using UEs on armrests. Pt voided and stood up after to pull up her brief with 1UE support on FWW . She then practiced standing knee extension on R and was able to WB for 50%. She was then able to walk with step to gait but only WB through via forefoot and flexed knee. Pt reports it is not painful but its scary. Pt got to sink counter and did some self care . She then returned to her chair slowly. Pt got back to chair and her spouse arrived. Call light placed within reach and have a bolster to support on LEs. Gait Assessment Gait Gait Assistance Required: Contact Guard Assist Distance (Feet) 10 Able to Maintain Weight Bearing Status Yes During Gait Assistive Devices Assistive Device Gait Belt,Front Wheeled Walker Orthotic/Prosthetic Devices or Brace: No Gait Deviations General Gait Pattern Antalgic,Decreased Stride Length,Decreased Feet Clearance,Flexed Trunk,Step-to Gait Factors Limiting Gait Function Factors Limiting Gait Function Decreased Activity Tolerance, Decreased Strength,Limited Range of Motion,Pain,Poor Balance,Poor Safety Awareness Comments Gait Comments Pt WB on RLE during gait but WB via forefoot with flexed knee. WB approx 50% bodyweight Stair Climbing Assessment Comments Stair Climbing Comments Not assessed. PT-Balance Assessment Sitting Balance and Reactions Static Sitting Balance Ability Good Dynamic Sitting Balance Ability Good Standing Balance and Reactions Static Standing Balance Ability Fair Dynamic Standing Balance Ability Fair Device Used FWW M5 PT-IP Objective Assessments Start: 07/12/20 13:29 Freq: NEEDED Status: Active Protocol: Document 07/12/20 14:45 AW (Rec: 07/12/20 15:51 AW [id number]) Orientation Orientation/Cognition Level of Alertness Alert Orientation Name,Day of Week,Place, Situation Language Function Ability No Deficits Noted Safety Awareness Decreased Safety Awareness Gross Range of Motion Lower Extremity ROM Assessment Right Impaired Strength Lower Extremity Strength Assessment Right Impaired Hip 4-/5 Comments Strength Comments LLE grossly 4-/5 Sensation Assessment Sensation Gross Sensation WNL Muscle Tone Muscle Tone WNL Yes M6 PT-IP Treatment Start: 07/12/20 13:29 Freq: NEEDED Status: Active Protocol: Document 07/12/20 14:45 AW (Rec: 07/12/20 15:51 AW [id number]) Physical Therapy Treatment Exercises Exercises Ankle Pumps,Gluteal Sets,Heel Slides,Passive Knee Extension Hang Other Treatments Other Treatment Performed Educated pt on role of PT, plan of care, weightbearing status, and safe use of FWW. M7 PT-IP Assessment and Plan Start: 07/12/20 13:29 Freq: NEEDED Status: Active Protocol: Document 07/14/20 11:15 HH (Rec: 07/14/20 11:28 HH [id number]) PT Summary Assessment and Plan Potential Rehabilitation Potential Good Status of Condition at Evaluation Evolving Summary Impairments Pain,ROM,Strength,Balance,Bed Mobility,Transfers,Gait, Activity Tolerance Progress Towards Goals Slow Progress due to Pain,Slow Progress due to Medical Issues,Slow Progress due to Activity Tolerance Assessment Summary The patient continues to have significant discomfort who is very drowsy and somnolence. She stated her pain is only 2- 3/10 but mostly fearful to WB on her RLE. Spent time to educate the important of ROM and WB activities after surgery. Pt did better today who is finally able to amb by WB her RLE but only on forefoot (~50% BW only). Pt completely only 10 ft with FWW which is far from baseline. Pt is aware her rehab goals in order to be safely DC home. Will cont to closely monitor her progress and i personally still recommend SNF rehab to improve her mobility and strength at this point Goals Bed Mobility Goal Independent Transfer Goal Independent,Front Wheeled Walker Gait Goal Independent,Front Wheel Walker Gait Distance 100 Other Goals - up/down 2 steps with R rail ascending SBA Days to Meet Goals 5 Frequency of Treatment Frequency Of Treatment Twice a Day Treatment Plan Physical Therapy Treatment Plan Bed Mobility Training,Transfer Training,Gait Training, Therapeutic Exercise,Balance Retraining,Post Op Education, Discharge Planning,Hot or Cold Pack Other Recommendations and Next Treatment ambulation; stairs when able Focus Recommendations To Nursing Amount of Assist Needed 1 Person Assist Discharge Recommendations PT Discharge Recommendations Home with Assistance,Home Health,SNF Rehab Transportation Needs at Discharge Private Vehicle
--- NOTE | 2020-07-14 15:07 | PT.IPTN ---
Surgery Performed Operation Date: 07/12/20 07:45 Actual Procedures p Total Knee Arthroplasty(Right) - Talon Hodge MD Physical Therapy Treatment Note M2 PT-IP Current Condition Start: 07/12/20 13:29 Freq: NEEDED Status: Active Protocol: Document 07/12/20 14:45 AW (Rec: 07/12/20 14:57 AW [id number]) Physical Therapy Current Condition Current Condition Evaluation Date 07/12/20 Treatment Diagnosis s/p R TKA; difficulty in walking Onset Date 07/12/20 Weight Bearing Status Weight Bearing Status Weight Bear as Tolerated M3 PT-IP Subjective Start: 07/12/20 13:29 Freq: NEEDED Status: Active Protocol: Document 07/14/20 14:55 HH (Rec: 07/14/20 15:07 HH [id number]) Subjective Physical Therapy Visit Type Type Treatment Note Visit Start Time 14:16 Visit Stop Time 14:34 Total Visit Minutes 18 Number of MANAGER PROPOSAL Visits 0 Physical Therapy Visit Comments Patient Comments I want to move again Therapy Pain Assessment Pain When Pain Assessed During Mobility Pain Present Pain Present Pain Reported Location right knee Intensity 2 Scale Used Numeric (0 - 10) Description Aching Pain Management Techniques Re-positioning,Timing of Activity with Medications M4 PT-IP Mobility and Gait Start: 07/12/20 13:29 Freq: NEEDED Status: Active Protocol: Document 07/14/20 14:55 HH (Rec: 07/14/20 15:07 HH [id number]) PT-Bed Mobility Assessment Supine to Sit Supine to Sit Contact Guard Assistance,1 Person Assistance,Bedrails Sit to Supine Sit to Supine Contact Guard Assistance,1 Person Assistance Scooting Scooting to Edge of Bed Standby Assistance PT-Transfer Assessment Sit to and From Stand Sit to and from Stand Contact Guard Assistance,1 Person Assistance,Use of Upper Extremities Equipment Transfer Assistive Device Gait Belt,Front Wheeled Walker Orthotic/Prosthetic Devices or Brace: No Transfers Transfer Destination Chair,Bedside Commode Transfer Technique Stand Pivot Transfer Ability Level of Assist Contact Guard Assistance,1 Person Assistance,Use of Upper Extremities Comments Mobility Comments Pt was in bed upon PT arrival. She was more alert than this morning. pain at 2/10. Pt was able to sit up with use of bed rail and LLE to lift RLE. She then stood up and stand pivoted to her L side to [facility] to void. She was able to stand with CGA for pericare and pull up/off her brief with 1UE support on walker. She then walked over to sink to clean up with step to pattern but forefoot WB only. Min A needed since pt's RLE appeared to be weak and wobbly. Pt walked around the bed with FWW min A and needed approx 5 mins to complete. Pt was able to sat at EOB and completed sit to supine with CGA. SCD was placed and bed alarm was activated. Gait Assessment Gait Gait Assistance Required: Contact Guard Assist Distance (Feet) 14 Able to Maintain Weight Bearing Status Yes During Gait Assistive Devices Assistive Device Gait Belt,Front Wheeled Walker Orthotic/Prosthetic Devices or Brace: No Gait Deviations General Gait Pattern Antalgic,Decreased Stride Length,Decreased Feet Clearance,Flexed Trunk,Step-to Gait Factors Limiting Gait Function Factors Limiting Gait Function Decreased Activity Tolerance, Decreased Strength,Limited Range of Motion,Pain,Poor Balance,Poor Safety Awareness Comments Gait Comments Pt WB on RLE during gait but WB via forefoot with flexed knee. WB approx 50% bodyweight Stair Climbing Assessment Comments Stair Climbing Comments Not assessed. PT-Balance Assessment Sitting Balance and Reactions Static Sitting Balance Ability Good Dynamic Sitting Balance Ability Good Standing Balance and Reactions Static Standing Balance Ability Fair Dynamic Standing Balance Ability Fair Device Used FWW M5 PT-IP Objective Assessments Start: 07/12/20 13:29 Freq: NEEDED Status: Active Protocol: Document 07/12/20 14:45 AW (Rec: 07/12/20 15:51 AW [id number]) Orientation Orientation/Cognition Level of Alertness Alert Orientation Name,Day of Week,Place, Situation Language Function Ability No Deficits Noted Safety Awareness Decreased Safety Awareness Gross Range of Motion Lower Extremity ROM Assessment Right Impaired Strength Lower Extremity Strength Assessment Right Impaired Hip 4-/5 Comments Strength Comments LLE grossly 4-/5 Sensation Assessment Sensation Gross Sensation WNL Muscle Tone Muscle Tone WNL Yes M6 PT-IP Treatment Start: 07/12/20 13:29 Freq: NEEDED Status: Active Protocol: Document 07/12/20 14:45 AW (Rec: 07/12/20 15:51 AW [id number]) Physical Therapy Treatment Exercises Exercises Ankle Pumps,Gluteal Sets,Heel Slides,Passive Knee Extension Hang Other Treatments Other Treatment Performed Educated pt on role of PT, plan of care, weightbearing status, and safe use of FWW. M7 PT-IP Assessment and Plan Start: 07/12/20 13:29 Freq: NEEDED Status: Active Protocol: Document 07/14/20 14:55 (Rec: 07/14/20 15:07 [id number]) PT Summary Assessment and Plan Potential Rehabilitation Potential Good Status of Condition at Evaluation Evolving Summary Impairments Pain,ROM,Strength,Balance,Bed Mobility,Transfers,Gait, Activity Tolerance Progress Towards Goals Slow Progress due to Pain,Slow Progress due to Medical Issues,Slow Progress due to Activity Tolerance Assessment Summary Pt progress very slowly. Only able to walk around the bed with FWW min A. Pt stated she is not safe to go home and would consider SNF option. Notified ENZO Smyth to follow up with her. Goals Bed Mobility Goal Independent Transfer Goal Independent,Front Wheeled Walker Gait Goal Independent,Front Wheel Walker Gait Distance 100 Other Goals - up/down 2 steps with R rail ascending SBA Days to Meet Goals 5 Frequency of Treatment Frequency Of Treatment Twice a Day Treatment Plan Physical Therapy Treatment Plan Bed Mobility Training,Transfer Training,Gait Training, Therapeutic Exercise,Balance Retraining,Post Op Education, Discharge Planning,Hot or Cold Pack Other Recommendations and Next Treatment ambulation; stairs when able Focus Recommendations To Nursing Amount of Assist Needed 1 Person Assist Discharge Recommendations PT Discharge Recommendations Home with 27/11 Assist Available,Home Health,SNF Rehab Transportation Needs at Discharge Private Vehicle
--- NOTE | 2020-07-14 15:45 | CM.DANOTE ---
DCP/continued: Received verbal referral from therapy that current recommendation is SNF. Patient inpatient status as of 05-15-20. Met with patient this afternoon to discuss d/c plan. Patient aware and agreeable to SNF and her first choice is [facility]. 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 PASRR will need to be completed prior to d/c. P: [facility] evaluating for potential admit on Sunday07-16-20. Belkis Denny<del>ENZO</del>
[2020-07-14] MEDS: VENLAFAXINE 37.5 MG TABLET 75 MG PO (16:41)
[2020-07-14] MEDS: TRAZODONE 50 MG TABLET PO (20:46)
[2020-07-14] MEDS: FENOFIBRATE 145 MG TABLET PO (20:46)
[2020-07-15] MEDS: ONDANSETRON 4 MG/2 ML INJ IV (00:07)
[2020-07-15 04:14] VITALS: BP 136/69; PULSE 96; RESP 18; TEMP 36.1; O2SAT 95
[2020-07-15] MEDS: diazePAM 5 MG TABLET PO ×2 (06:39→21:10)
--- NOTE | 2020-07-15 07:52 | PM.DS.1 ---
History of Present Illness History of Present Illness Date Patient Seen: 07/15/20 Time Patient Seen: 07:52 Chief complaint: OPB Narrative: History and physical is contained in the chart previously completed note. Please refer to that note for this information. Discharge Providers Provider Date of admission: 07/13/20 14:12 Discharge Date: 07/15/20 Consults: 07/12/20 11:14 Consult to Discharge Planning Routine Comment: Consult to Physical Therapy Evaluate & Treat Comment: Physician Instructions: postop TKA protocol Consult to Respiratory Therapy Evaluate & Treat Comment: Physician Instructions: Evaluate and treat 07/15/20 07:44 Consult to Home Health Routine Comment: Nursing and PT after discharge Reason For Exam: rehab after total knee Discharge provider: Talon Hodge MD Summary Hospital Course Discharge Diagnosis: 1. Right knee osteoarthritis 2. Post hemorrhagic anemia Hospital Course: The patient was admitted to the hospital and taken directly to the operating room on July 12, 2020 where she underwent a right total knee replacement. Her postoperative course was marked by significant pain control difficulties. She used enough narcotic that she was frequently somnolent. This limited her progress with physical therapy. Patient also has very anxious about returning home with her who is deaf and somewhat limited in his physical capacities. She was maintained in the hospital for additional physical therapy to make her more independent. On postoperative day 3 she is stable for discharge home with home health care. She has a mild post hemorrhagic anemia that does not require specific treatment. Status at Discharge Cognitive/behavioral status at discharge: oriented Functional status at discharge: uses cane/walker Overall status at discharge: patient is progressing back to baseline Time Spent with Patient Time spent: Less than 30 minutes Exam Vital Signs (past 8 hours): - 07/15/20 04:14 Temperature 97.0 F L Pulse Rate 96 H Respiratory Rate 18 Blood Pressure 136/69 Pulse Oximetry 95 Oxygen Delivery Method Room Air Oxygen Flow Rate 0 Narrative Exam Narrative: Right knee wound is dressed with no drainage on the bandage. There is no surrounding erythema and minimal swelling. Calf is soft. Light touch and motion are intact in the right lower extremity. Objective Labs Result Diagrams: 07/13/20 05:28 [facility] Medical History (Updated 07/05/20 @ 09:55 by Lis Devlin RN) Anxiety about health Asthma Controlled diabetes mellitus type II without complication COPD (chronic obstructive pulmonary disease) Coronary artery calcification Fatty liver Former smoker Functional urinary incontinence Ganglion cyst of dorsum of right wrist GERD (gastroesophageal reflux disease) History of PFTs (~02/2019) History of pneumonia HTN (hypertension) Hyperlipidemia Hypothyroid Keratosis Leukocytosis Numbness and tingling Panic attacks Polycythemia Pulmonary nodules Restless leg syndrome Sleep apnea Vertigo Vitamin D deficiency Vocal cord dysfunction Surgical History (Updated 06/29/20 @ 11:36 by Lis Devlin RN) H/O: hysterectomy History of bilateral tubal ligation History of decompression of both ulnar nerves History of hemilaminectomy Hx of appendectomy Hx of arthroscopy of right knee Hx of bladder repair surgery Hx of laparoscopy Hx of microdiscectomy Hx of microdiscectomy (11/17/16) Hx of rhinoplasty Hx of toe surgery Hx of tonsillectomy S/P cervical spinal fusion (06/26/16) S/P tendon repair Social History household members: spouse Smoking Status: Former smoker alcohol intake: current Discharge Assessment & Plan Assessment and Plan Assessment: Stable postoperative day 3 status post total knee replacement. She has made slow but steady progress with physical therapy. She has a very mild post hemorrhagic anemia that does not require specific treatment. Plan of Treatment: We will arrange for home health to address her concerns regarding care at home. We will arrange for home health physical therapy initially. She will follow up in my office in 10-14 days. Discharge prescription for oxycodone has been electronically filed with her pharmacy at [facility] in [place]. Suggestions have been made for the use of Tylenol for pain control and low-dose aspirin twice a day for DVT prophylaxis. Discharge Plan Discharge Plan Patient Disposition: Home Discharge orders & Medications Prescriptions: New acetaminophen 325 mg Tablet 650 mg PO TID 30 Days Qty: 180 RF: 0 aspirin 81 mg Tablet,Delayed Release (Dr/Ec) 81 mg PO BID 42 Days Qty: 84 RF: 0 oxycodone 5 mg Tablet 5 mg PO Q4H PRN (Reason: Pain, Moderate (4-6)) Qty: 60 RF: 0 Continued calcium carbonate-vitamin D3 [Calcium 600 with Vitamin D3] 600 MG/200 IU capsule 1 units PO QDAY Qty: 0 RF: 0 metformin 1,000 MG tablet 1,000 mg PO BIDCC Qty: 0 RF: 0 trazodone 50 mg Tablet 50 mg PO BEDTIME RF: 0 spironolactone 100 mg Tablet 100 mg PO DAILY RF: 0 fluticasone propionate 44 mcg/actuation Hfa Aerosol Inhaler 2 inh INHALATION QD-BID PRN (Reason: allergies) RF: 0 pravastatin 20 mg Tablet 20 mg PO BID RF: 0 hydrochlorothiazide 25 mg Tablet 25 mg PO DAILY RF: 0 fenofibrate nanocrystallized 145 mg Tablet 145 mg PO BEDTIME RF: 0 diphenhydramine HCl [Benadryl] 25 mg Capsule 25 mg PO QID PRN (Reason: Itching) RF: 0 oxybutynin chloride 15 mg Tablet Extended Release 24hr 15 mg PO DAILY RF: 0 venlafaxine 75 mg Tablet 75 mg PO QPM RF: 0 glipizide 5 mg Tablet 5 mg PO BID RF: 0 diazepam 5 mg tablet 5 mg PO PRN PRN (Reason: Anxiety) RF: 0 calcium carbonate [Tums Ultra] 400 mg calcium (1,000 mg) Tablet,Chewable 400 mg PO PRN PRN (Reason: Heartburn) RF: 0 Follow up/Referrals: Talon Hodge MD [Physician] - 2 Weeks Discharge Health Status Multidrug resistant organism: No MDRO Diet/Activity/Treatments Diet: Diet as Tolerated and Carb-consistent/Diabetic Activity: You may bear weight as tolerated on your right leg. Cold/Heat Therapy: Apply ice as needed to the right knee for pain control for 15 minutes every hour. Skin/Wound/Dressing Care Report to your healthcare provider any signs of infection, such as:: chills, fever, night sweats, increased pain, unusual drainage and unusual redness Dressing: You may shower with the dressing in place. Leave the dressing in place until your postoperative follow-up. If the central strip of the dressing becomes saturated with either water or blood please call the office to have it assessed. Visit Report/Discharge Packet Instructions: DI for Knee Replacement, DI for Prescription Opioid Use Stand Alone Forms: Surgery Discharge Quality VTE Deep Vein Thrombosis/Pulmonary Embolism Present on Admission: No
[2020-07-15 08:05] VITALS: BP 121/66; PULSE 104; RESP 22; TEMP 37.1; O2SAT 95
[2020-07-15] MEDS: OXYBUTYNIN 5 MG ER TAB 15 MG PO (09:14)
[2020-07-15] MEDS: PRAVASTATIN 20 MG TABLET PO ×2 (09:14→21:10)
[2020-07-15] MEDS: hydroCHLOROthiazide 25 MG TABLET PO (09:14)
[2020-07-15] MEDS: ACETAMINOPHEN 325 MG TABLET 650 MG PO ×3 (09:14→21:10)
[2020-07-15] MEDS: glipiZIDE 5 MG TABLET PO ×2 (09:14→21:11)
[2020-07-15] MEDS: DOCUSATE 100 MG CAPSULE PO ×2 (09:14→21:10)
[2020-07-15] MEDS: ASPIRIN EC 81 MG TABLET PO ×2 (09:14→21:10)
[2020-07-15] MEDS: METFORMIN HCL 500 MG TABLET 1000 MG PO ×2 (09:14→17:01)
[2020-07-15] MEDS: SPIRONOLACTONE 25 MG TABLET 100 MG PO (09:15)
[2020-07-15] MEDS: SODIUM CHLORIDE 0.9% FLUSH 10 ML IV ×2 (09:15→21:11)
[2020-07-15] MEDS: OXYCODONE IR 5 MG TABLET PO ×2 (10:03→21:10)
--- NOTE | 2020-07-15 11:35 | PT.IPTN ---
Surgery Performed Operation Date: 07/12/20 07:45 Actual Procedures p Total Knee Arthroplasty(Right) - Talon Hodge MD Physical Therapy Treatment Note M2 PT-IP Current Condition Start: 07/12/20 13:29 Freq: NEEDED Status: Active Protocol: Document 07/12/20 14:45 AW (Rec: 07/12/20 14:57 AW [id number]) Physical Therapy Current Condition Current Condition Evaluation Date 07/12/20 Treatment Diagnosis s/p R TKA; difficulty in walking Onset Date 07/12/20 Weight Bearing Status Weight Bearing Status Weight Bear as Tolerated M3 PT-IP Subjective Start: 07/12/20 13:29 Freq: NEEDED Status: Active Protocol: Document 07/15/20 09:35 CLB (Rec: 07/15/20 12:46 CLB [id number]) Subjective Physical Therapy Visit Type Type Treatment Note Visit Start Time 09:35 Visit Stop Time 11:35 Total Visit Minutes 46 Notes Split treat: [id number], [id number] Hodge of pt progress and inablility to safely climb stairs. Number of SILK SCREEN OPERATOR Visits 1 Physical Therapy Visit Comments Patient Comments Pt willing to work with therapy. I should go home, I don't want to make the doctor mad. Therapy Pain Assessment Pain When Pain Assessed During Mobility Pain Present Pain Present Pain Reported Location right knee Intensity 10 Scale Used Numeric (0 - 10) Pain Management Techniques Re-positioning,Timing of Activity with Medications M4 PT-IP Mobility and Gait Start: 07/12/20 13:29 Freq: NEEDED Status: Active Protocol: Document 07/15/20 09:35 CLB (Rec: 07/15/20 12:46 CLB [id number]) PT-Bed Mobility Assessment Supine to Sit Supine to Sit Contact Guard Assistance,1 Person Assistance,Bedrails Sit to Supine Sit to Supine Contact Guard Assistance,1 Person Assistance Scooting Scooting to Edge of Bed Standby Assistance PT-Transfer Assessment Sit to and From Stand Sit to and from Stand Minimal Assistance,1 Person Assistance,Use of Upper Extremities Equipment Transfer Assistive Device Gait Belt,Front Wheeled Walker Orthotic/Prosthetic Devices or Brace: No Transfers Transfer Destination Bed,Chair,Toilet,Wheelchair Transfer Technique Stand Pivot Transfer Ability Level of Assist Contact Guard Assistance,1 Person Assistance,Use of Upper Extremities Comments Mobility Comments Pt sitting on EOB upon arrival . Pt required Min A sit-stand then Min A with attempt to ambulate, pt only able to use twisting motion to pivot on LLE as pt states she is unable to WB due to 10/10 pain. Pt returned to bed CGA to supine. Pt in supine unable to straighten leg as knee is at 20 degrees flx. After passive knee ext pt knee ~5 degrees flx and unable to perform HS due to guarding. Pt left in bed requesting pain meds. At returning to room pt in bed and able to get to EOB CGA, pt then stood and was able to ambulate ~5ft from bed to window seat. Pt walks on forefoot and with knee in flx 20-30 degrees and only able to WB ~50%. Pt then stood Mod A from window seat and ambulated into BR requiring verbal cues for alignment to properly sit on toilet and assist with doffing/donning brief. Pt then ambulated to chair. After rest break pt transferred to and rode to therapy stairs. Pt stood holding hand rail and attempted to take step up first step with LLE. Pt unable to WB on RLE to take step. Pt then sat on second step and attempted to scoot up stairs backward but was unable to do so. Pt required Mod A to stand from step and transferred back to . Pt asked to bed left in stating it was more comfortable than bed or chair . Gait Assessment Gait Gait Assistance Required: Contact Guard Assist Distance (Feet) 15 Able to Maintain Weight Bearing Status Yes During Gait Assistive Devices Assistive Device Gait Belt,Front Wheeled Walker Orthotic/Prosthetic Devices or Brace: No Gait Deviations General Gait Pattern Antalgic,Decreased Stride Length,Decreased Feet Clearance,Flexed Trunk,Step-to Gait Factors Limiting Gait Function Factors Limiting Gait Function Decreased Activity Tolerance, Decreased Strength,Limited Range of Motion,Pain,Poor Balance,Poor Safety Awareness Comments Gait Comments Pt WB on RLE during gait but WB via forefoot with flexed knee. WB approx 50% bodyweight Stair Climbing Assessment Comments Stair Climbing Comments Pt attempted but was unable to climb steps due to inability to WB on RLE. M5 PT-IP Objective Assessments Start: 07/12/20 13:29 Freq: NEEDED Status: Active Protocol: Document 07/12/20 14:45 AW (Rec: 03/08/21 15:51 AW [id number]) Orientation Orientation/Cognition Level of Alertness Alert Orientation Name,Day of Week,Place, Situation Language Function Ability No Deficits Noted Safety Awareness Decreased Safety Awareness Gross Range of Motion Lower Extremity ROM Assessment Right Impaired Strength Lower Extremity Strength Assessment Right Impaired Hip 4-/5 Comments Strength Comments LLE grossly 4-/5 Sensation Assessment Sensation Gross Sensation WNL Muscle Tone Muscle Tone WNL Yes M6 PT-IP Treatment Start: 07/12/20 13:29 Freq: NEEDED Status: Active Protocol: Document 07/12/20 14:45 AW (Rec: 07/12/20 15:51 AW [id number]) Physical Therapy Treatment Exercises Exercises Ankle Pumps,Gluteal Sets,Heel Slides,Passive Knee Extension Hang Other Treatments Other Treatment Performed Educated pt on role of PT, plan of care, weightbearing status, and safe use of FWW. M7 PT-IP Assessment and Plan Start: 07/12/20 13:29 Freq: NEEDED Status: Active Protocol: Document 07/15/20 09:35 CLB (Rec: 07/15/20 12:46 CLB [id number]) PT Summary Assessment and Plan Potential Rehabilitation Potential Good Status of Condition at Evaluation Evolving Summary Impairments Pain,ROM,Strength,Balance,Bed Mobility,Transfers,Gait, Activity Tolerance Progress Towards Goals Slow Progress due to Pain,Slow Progress due to Medical Issues,Slow Progress due to Activity Tolerance Assessment Summary Pt continues with slow progress unable to WB more than 50% of RLE. Pt unable to climb stairs at this time and will require SNF rehab to improve strength for increased activity tolerance and functional mobility. Goals Bed Mobility Goal Independent Transfer Goal Independent,Front Wheeled Walker Gait Goal Independent,Front Wheel Walker Gait Distance 100 Other Goals - up/down 2 steps with R rail ascending SBA Days to Meet Goals 5 Frequency of Treatment Frequency Of Treatment Twice a Day Treatment Plan Physical Therapy Treatment Plan Bed Mobility Training,Transfer Training,Gait Training, Therapeutic Exercise,Balance Retraining,Post Op Education, Discharge Planning,Hot or Cold Pack Other Recommendations and Next Treatment ambulation; stairs when able Focus Recommendations To Nursing Amount of Assist Needed 1 Person Assist Discharge Recommendations PT Discharge Recommendations SNF Rehab Transportation Needs at Discharge Private Vehicle
--- NOTE | 2020-07-15 12:33 | CM.DPNOTE ---
Faxed clinicals to [facility] per Padmini on 07/15/20. Received fax confirmation. Leigha Sands CM Asst.
--- NOTE | 2020-07-15 14:06 | CM.DPNOTE ---
DCP Cont According to Dr Hodge this morning- patient will DC home today w/ HH. DC order put into place Then discussed plan w/therapy team who were very concerned about the safety of home plan, spouse at bedside this morning, both patient and spouse are hopeful for . This BELT PRESS OPERATOR requested BRIANA Villa contact Dr Hodge to relay concerns. Later heard from DANIA Rubio who is helping w/this dispo plan...DANNI Burns will be cancelling DC order on Dr Hodge' behalf and will order updated COVID test in anticipation of DC to SNF Sunday. Faxed additional info to Teresita at [facility] per her request and later heard from Teresita that patient had indeed been accepted for SNF admission Sunday. Updated patient this afternoon, she was drifting off to sleep, however confirmed agreement to plan. This BELT PRESS OPERATOR will follow closely for coordination of DCP, DC to [facility] is anticipated Sunday JW
--- NOTE | 2020-07-15 14:10 | PT.IPTN ---
Surgery Performed Operation Date: 07/12/20 07:45 Actual Procedures p Total Knee Arthroplasty(Right) - Talon Hodge MD Physical Therapy Treatment Note M2 PT-IP Current Condition Start: 07/12/20 13:29 Freq: NEEDED Status: Active Protocol: Document 07/12/20 14:45 AW (Rec: 07/12/20 14:57 AW [id number]) Physical Therapy Current Condition Current Condition Evaluation Date 07/12/20 Treatment Diagnosis s/p R TKA; difficulty in walking Onset Date 07/12/20 Weight Bearing Status Weight Bearing Status Weight Bear as Tolerated M3 PT-IP Subjective Start: 07/12/20 13:29 Freq: NEEDED Status: Active Protocol: Document 07/15/20 13:44 CLB (Rec: 07/15/20 15:03 CLB [id number]) Subjective Physical Therapy Visit Type Type Treatment Note Visit Start Time 13:44 Visit Stop Time 14:10 Total Visit Minutes 26 Number of CHIEF SOLUTION ARCHITECT Visits 2 Physical Therapy Visit Comments Patient Comments Pt willing to participate with therapy. Therapy Pain Assessment Pain When Pain Assessed During Mobility Pain Present Pain Present Pain Reported Location right knee Intensity 6 Scale Used Numeric (0 - 10) Pain Management Techniques Re-positioning,Timing of Activity with Medications M4 PT-IP Mobility and Gait Start: 07/12/20 13:29 Freq: NEEDED Status: Active Protocol: Document 07/15/20 13:44 CLB (Rec: 07/15/20 15:03 CLB [id number]) PT-Bed Mobility Assessment Supine to Sit Supine to Sit Contact Guard Assistance,1 Person Assistance,Bedrails Sit to Supine Sit to Supine Minimal Assistance,1 Person Assistance Scooting Scooting to Edge of Bed Standby Assistance PT-Transfer Assessment Sit to and From Stand Sit to and from Stand Minimal Assistance,1 Person Assistance,Use of Upper Extremities Equipment Transfer Assistive Device Gait Belt,Front Wheeled Walker Orthotic/Prosthetic Devices or Brace: No Transfers Transfer Destination Bed,Chair Transfer Technique Stand Pivot Transfer Ability Level of Assist Contact Guard Assistance,1 Person Assistance,Use of Upper Extremities Comments Mobility Comments Pt in bed requiring CGA supine -sit. Pt then requires Min A for sit-stand while stablizine FWW as pt pushes from the bed on the right and leans on walker with left forearm until standing as pt won't put weight through RLE. Pt then ambulated ~6ft to window seat requiring Min A and verbal cues for safe position before sitting. Pt performed HS then required Mod A from low bench and ambulated back to bed. Pt requiring Min A of RLE onto bed. Left in bed with alarm on and LE positioning on bed locked flat. Informed RN of pt 's mobility and locked bed feature. Gait Assessment Gait Gait Assistance Required: Contact Guard Assist Distance (Feet) 12 Able to Maintain Weight Bearing Status Yes During Gait Assistive Devices Assistive Device Gait Belt,Front Wheeled Walker Orthotic/Prosthetic Devices or Brace: No Gait Deviations General Gait Pattern Antalgic,Decreased Stride Length,Decreased Feet Clearance,Flexed Trunk,Step-to Gait Factors Limiting Gait Function Factors Limiting Gait Function Decreased Activity Tolerance, Decreased Strength,Limited Range of Motion,Pain,Poor Balance,Poor Safety Awareness Comments Gait Comments Pt attempting to WB with flat foot with increased trunk flexion. M5 PT-IP Objective Assessments Start: 07/12/20 13:29 Freq: NEEDED Status: Active Protocol: Document 07/12/20 14:45 AW (Rec: 07/12/20 15:51 AW [id number]) Orientation Orientation/Cognition Level of Alertness Alert Orientation Name,Day of Week,Place, Situation Language Function Ability No Deficits Noted Safety Awareness Decreased Safety Awareness Gross Range of Motion Lower Extremity ROM Assessment Right Impaired Strength Lower Extremity Strength Assessment Right Impaired Hip 4-/5 Comments Strength Comments LLE grossly 4-/5 Sensation Assessment Sensation Gross Sensation WNL Muscle Tone Muscle Tone WNL Yes M6 PT-IP Treatment Start: 07/12/20 13:29 Freq: NEEDED Status: Active Protocol: Document 07/15/20 13:44 CLB (Rec: 07/15/20 15:03 CLB [id number]) Physical Therapy Treatment Exercises Exercises Ankle Pumps,Quad Sets,Heel Slides,Short Arc Quads Knee ROM Measurement 20-60 Education Education Provided Weight Bearing Status,Safety M7 PT-IP Assessment and Plan Start: 07/12/20 13:29 Freq: NEEDED Status: Active Protocol: Document 07/15/20 13:44 CLB (Rec: 07/15/20 15:03 CLB [id number]) PT Summary Assessment and Plan Potential Rehabilitation Potential Good Status of Condition at Evaluation Evolving Summary Impairments Pain,ROM,Strength,Balance,Bed Mobility,Transfers,Gait, Activity Tolerance Progress Towards Goals Slow Progress due to Pain,Slow Progress due to Activity Tolerance Assessment Summary Pt ambulates with flexed knee and truck during gait as pt has difficulty with WB. Pt with flexed knee at ~20-30 degress during supine and gait . Pt will benefit from SNF rehab. Goals Bed Mobility Goal Independent Transfer Goal Independent,Front Wheeled Walker Gait Goal Independent,Front Wheel Walker Gait Distance 100 Other Goals - up/down 2 steps with R rail ascending SBA Days to Meet Goals 5 Frequency of Treatment Frequency Of Treatment Twice a Day Treatment Plan Physical Therapy Treatment Plan Bed Mobility Training,Transfer Training,Gait Training, Therapeutic Exercise,Balance Retraining,Post Op Education, Discharge Planning,Hot or Cold Pack Other Recommendations and Next Treatment ambulation; stairs if able Focus Recommendations To Nursing Amount of Assist Needed 1 Person Assist Discharge Recommendations PT Discharge Recommendations SNF Rehab Transportation Needs at Discharge Private Vehicle
[2020-07-15 14:14] LABS: COVID19 -Nasal RAPID Negative (Negative)
[2020-07-15 15:25] VITALS: BP 140/75; PULSE 108; RESP 18; TEMP 36.3; O2SAT 94
[2020-07-15] MEDS: MAG HYDROX/ALUM/SIMETH 30 ML UDC PO (16:40)
[2020-07-15] MEDS: VENLAFAXINE 37.5 MG TABLET 75 MG PO (17:01)
[2020-07-15 19:00] VITALS: BP 164/78; PULSE 104; RESP 17; TEMP 36.7; O2SAT 95
[2020-07-15] MEDS: TRAZODONE 50 MG TABLET PO (21:10)
[2020-07-15] MEDS: FENOFIBRATE 145 MG TABLET PO (21:10)
[2020-07-16] VITALS: BP 145/78; PULSE 93; RESP 16; TEMP 35.9; O2SAT 95
--- NOTE | 2020-07-16 00:16 | PC.NURSE ---
Addendum entered by Suyapa Villavicencio R.N. 07/16/20 06:38: 0500 Assisted patient to toilet; 1PA with FWW. Tolerated ambulating well. Back to bed, lying right side with pillow between knees. Original Note: 2300 Received safe hand-off report. The patient is lying supine in bed, AOx4 and on room air. She has a left wrist PIV that is saline-locked and will 07/16; however, the patient should hopefully discharge before we need to replace the PIV. She c/o severe burning at the incision site of the right knee. There is some redness at the medial aspect of the knee extending out of the bandaged area; slightly warmer to the touch than the surrounding sites. Pt reports allergy to all adhesives. Ice packs x2 applied to knee. I offered to ask the provider for benadryl if she felt it was an allergic reaction but she didn't seem all that interested, It won't take care of the rash. It will just stop the itching. When I left the room for less than a minute to get the ice packs and came back, she had quickly fallen asleep again and did not stir when I applied the ice packs to her knee, adjusted her blankets and put a pillow under her knee. She seems to still exhibit excessive somnolence as reported in previous notes. I will hold the scheduled diazepam for midnight.
[2020-07-16] MEDS: OXYCODONE IR 5 MG TABLET PO (05:04)
[2020-07-16 08:21] VITALS: BP 109/65; PULSE 103; RESP 20; TEMP 36.9; O2SAT 95
[2020-07-16] MEDS: hydroCHLOROthiazide 25 MG TABLET PO (09:00)
[2020-07-16] MEDS: ACETAMINOPHEN 325 MG TABLET 650 MG PO (09:01)
[2020-07-16] MEDS: ASPIRIN EC 81 MG TABLET PO (09:01)
[2020-07-16] MEDS: SPIRONOLACTONE 25 MG TABLET 100 MG PO (09:01)
[2020-07-16] MEDS: METFORMIN HCL 500 MG TABLET 1000 MG PO (09:03)
[2020-07-16] MEDS: DOCUSATE 100 MG CAPSULE PO (09:03)
[2020-07-16] MEDS: OXYBUTYNIN 5 MG ER TAB 15 MG PO (09:03)
[2020-07-16] MEDS: glipiZIDE 5 MG TABLET PO (09:04)
[2020-07-16] MEDS: PRAVASTATIN 20 MG TABLET PO (09:05)
[2020-07-16] MEDS: SODIUM CHLORIDE 0.9% FLUSH 10 ML IV (09:05)
--- NOTE | 2020-07-16 09:25 | PT.IPTN ---
Surgery Performed Operation Date: 07/12/20 07:45 Actual Procedures p Total Knee Arthroplasty(Right) - Talon Hodge MD Physical Therapy Treatment Note M2 PT-IP Current Condition Start: 07/12/20 13:29 Freq: NEEDED Status: Active Protocol: Document 07/12/20 14:45 AW (Rec: 07/12/20 14:57 AW [id number]) Physical Therapy Current Condition Current Condition Evaluation Date 07/12/20 Treatment Diagnosis s/p R TKA; difficulty in walking Onset Date 07/12/20 Weight Bearing Status Weight Bearing Status Weight Bear as Tolerated M3 PT-IP Subjective Start: 07/12/20 13:29 Freq: NEEDED Status: Active Protocol: Document 07/16/20 09:05 CLB (Rec: 07/16/20 12:03 CLB [id number]) Subjective Physical Therapy Visit Type Type Treatment Note Visit Start Time 09:05 Visit Stop Time 09:25 Total Visit Minutes 20 Number of SUBSTATION ELECTRICIAN SUPERVISOR Visits 3 Physical Therapy Visit Comments Patient Comments Pt willing to participate with therapy. Therapy Pain Assessment Pain When Pain Assessed During Mobility Pain Present Pain Present Pain Reported M4 PT-IP Mobility and Gait Start: 07/12/20 13:29 Freq: NEEDED Status: Active Protocol: Document 07/16/20 09:05 CLB (Rec: 07/16/20 12:03 CLB [id number]) PT-Bed Mobility Assessment Supine to Sit Supine to Sit Contact Guard Assistance,1 Person Assistance,Bedrails Scooting Scooting to Edge of Bed Standby Assistance PT-Transfer Assessment Sit to and From Stand Sit to and from Stand Minimal Assistance,1 Person Assistance,Use of Upper Extremities Equipment Transfer Assistive Device Gait Belt,Front Wheeled Walker Orthotic/Prosthetic Devices or Brace: No Transfers Transfer Destination Chair Transfer Technique ambulated with FWW Transfer Ability Level of Assist Contact Guard Assistance,1 Person Assistance,Use of Upper Extremities Comments Mobility Comments Pt in bed and performed ther ex. Pt able to get to EOB CGA and scoot SBA. Pt then stood Min A and ambulated ~10ft to chair. Pt Left in bed with call light and all needs within reach. Gait Assessment Gait Gait Assistance Required: Contact Guard Assist Distance (Feet) 10 Assistive Devices Assistive Device Gait Belt,Front Wheeled Walker Orthotic/Prosthetic Devices or Brace: No Gait Deviations General Gait Pattern Antalgic,Decreased Stride Length,Decreased Feet Clearance,Flexed Trunk,Step-to Gait Factors Limiting Gait Function Factors Limiting Gait Function Decreased Activity Tolerance, Decreased Strength,Limited Range of Motion,Pain,Poor Balance,Poor Safety Awareness Comments Gait Comments Pt ambulates with cues to WB on RLE. M5 PT-IP Objective Assessments Start: 07/12/20 13:29 Freq: NEEDED Status: Active Protocol: Document 07/12/20 14:45 AW (Rec: 07/12/20 15:51 AW [id number]) Orientation Orientation/Cognition Level of Alertness Alert Orientation Name,Day of Week,Place, Situation Language Function Ability No Deficits Noted Safety Awareness Decreased Safety Awareness Gross Range of Motion Lower Extremity ROM Assessment Right Impaired Strength Lower Extremity Strength Assessment Right Impaired Hip 4-/5 Comments Strength Comments LLE grossly 4-/5 Sensation Assessment Sensation Gross Sensation WNL Muscle Tone Muscle Tone WNL Yes M6 PT-IP Treatment Start: 07/12/20 13:29 Freq: NEEDED Status: Active Protocol: Document 07/16/20 09:05 CLB (Rec: 07/16/20 12:03 CLB [id number]) Physical Therapy Treatment Exercises Exercises Ankle Pumps,Quad Sets,Heel Slides,Short Arc Quads,Passive Knee Extension Hang Knee ROM Measurement 20-60 Education Education Provided Weight Bearing Status,Safety M7 PT-IP Assessment and Plan Start: 07/12/20 13:29 Freq: NEEDED Status: Active Protocol: Document 07/16/20 09:05 CLB (Rec: 07/16/20 12:03 CLB [id number]) PT Summary Assessment and Plan Potential Rehabilitation Potential Good Status of Condition at Evaluation Evolving Summary Impairments Pain,ROM,Strength,Balance,Bed Mobility,Transfers,Gait, Activity Tolerance Progress Towards Goals Slow Progress due to Pain,Slow Progress due to Activity Tolerance Assessment Summary Pt found in bed with pillow under knees, explained to pt knee should remain in extension. Pt continues to ambulate with flexed right knee and unwilling to fully WB on RLE. Goals Bed Mobility Goal Independent Transfer Goal Independent,Front Wheeled Walker Gait Goal Independent,Front Wheel Walker Gait Distance 100 Other Goals - up/down 2 steps with R rail ascending SBA Days to Meet Goals 5 Frequency of Treatment Frequency Of Treatment Twice a Day Treatment Plan Physical Therapy Treatment Plan Bed Mobility Training,Transfer Training,Gait Training, Therapeutic Exercise,Balance Retraining,Post Op Education, Discharge Planning,Hot or Cold Pack Recommendations To Nursing Amount of Assist Needed 1 Person Assist Discharge Recommendations PT Discharge Recommendations SNF Rehab Transportation Needs at Discharge Private Vehicle
[2020-07-16 11:30] VITALS: BP 141/73; PULSE 100; RESP 16; TEMP 36.3; O2SAT 95
--- NOTE | 2020-07-16 11:41 | CM.DPNOTE ---
DC Note DC to [facility] today, patient aware, agreeable, IMM provided. With assist from ANNAMARIE Ahuja, completed and signed med list faxed w/ completed PASRR to Teresita at [facility]. Updated COVID result will be included in packet to go with patient to SNF. W/c van arranged by Teresita for p/u at 1400, updated JOHNNY Brown and gave nurse to nurse report number- main number at [facility] P# [phone] Plan: DC to [facility] via w/c today JW
[2020-07-16] MEDS: diazePAM 5 MG TABLET PO (13:00)
--- NOTE | 2020-07-16 14:06 | PC.NURSE ---
Patient taken by facility staff, patient had all belongings.
== END 2020-07-16 14:06 | DRG 470 ==
LOC: OR 14:30 → AC 14:30
PROVIDERS: Physician Assistant Surgical; Admitting Provider Orthopaedic Surgery; Family Provider Physician Assistant; Visit Provider Orthopaedic Surgery
PROC: 0SRC0JZ Replacement of Right Knee Joint with Synthetic Substitute, Open Approach (ICD-10-PCS; CPT 27447; principal; 2020-07-12 07:45)
DX: M17.11 Unilateral primary osteoarthritis, right knee (principal); E11.9 Type 2 diabetes mellitus without complications; J45.909 Unspecified asthma, uncomplicated; J44.9 Chronic obstructive pulmonary disease, unspecified; I10 Essential (primary) hypertension; E78.5 Hyperlipidemia, unspecified; K21.9 Gastro-esophageal reflux disease without esophagitis; F41.9 Anxiety disorder, unspecified; G89.18 Other acute postprocedural pain; R40.0 Somnolence; T40.605A Adverse effect of unspecified narcotics, initial encounter; Z87.891 Personal history of nicotine dependence; Z20.822 Contact with and (suspected) exposure to COVID-19; Z79.84 Long term (current) use of oral hypoglycemic drugs
CPT/HCPCS: 36415; 73560; 82962; 85014; 85018; 87635; 97110; 97116; 97161; 97530; C1776; C9803; C9290; J0330; J0690; J1170; J1200; J2250; J2270; J2274; J2405; J2704; J2765